=== PATIENT | male | born 1950 | race Caucasian/White ===

== ENCOUNTER → 2016-07-21 | Outpatient (CLI) | payer BC ==
[~2016-07-21] MED LIST: ASPI81TA28 PO; COEN1CAP37 PO; DONE10TA12 PO; HYDR12.56 PO; HYZ/50125 PO; LOSA1TAB PO; LOVA10TA3 PO; LOVA20TA4 PO; LOVA40TA4 PO; MULT-506 PO
[2016-07-21 10:13] LABS: ESTIMATED AVERAGE GLUCOSE 143 mg/dl; HA1C FLAG Normal (Normal)
[2016-07-21 10:19] LABS: BLOOD UREA NITROGEN 16 mg/dl (7-18); CALCIUM 9.5 mg/dl (8.5-10.1); CARBON DIOXIDE 30 mmol/L (21-32); CHLORIDE 103 mmol/L (98-107); CHOLESTEROL 146 mg/dl (0-200); GLUCOSE 126 mg/dl (70-99); POTASSIUM 3.3 mmol/L (3.5-5.1); SODIUM 141 mmol/L (136-145); TRIGLYCERIDES 102 mg/dl (0-150); VERY LOW DENSITY LIPOPROT CALC 20 mg/dl
[2016-07-21 10:29] LABS: CHOLESTEROL/HDL RATIO 3.7; HDL CHOLESTEROL 39 mg/dl; LDL CHOLESTEROL CALCULATED 87 mg/dl
== END | disposition home or self-care (01) ==
LOC: C.LAB1850 07:12
PROVIDERS: ATTEND Internal Medicine
DX: E78.5 Hyperlipidemia, unspecified (principal); I10 Essential (primary) hypertension; Z86.39 Personal history of other endocrine, nutritional and metabolic disease

== ENCOUNTER → 2016-07-26 | Outpatient (CLI) | payer BC ==
--- NOTE | 2016-07-26 10:37 | DIAGNOSTIC IMAGING REPORT ---
RIGHT SHOULDER MIN 2 VIEWS ROUTINE CLINICAL HISTORY: Right shoulder pain. COMPARISON: None FINDINGS: Alignment of the right shoulder is anatomic. There is no acute fracture. There is moderate AC joint arthrosis and mild glenohumeral joint arthrosis. IMPRESSION: 1. No acute fracture. 2. Moderate osteoarthritis of the right acromioclavicular joint and mild arthritis of the glenohumeral joint. Electronically signed by: eDlonte Castro M.D. 07/26/2016 10:36 AM Dictated Date/Time: 07/26/2016 10:35 AM
== END | disposition home or self-care (01) ==
LOC: C.RAD1850 10:14
PROVIDERS: ATTEND Internal Medicine
DX: M25.511 Pain in right shoulder (principal); M19.011 Primary osteoarthritis, right shoulder

== ENCOUNTER → 2016-09-27 | Outpatient (CLI) | payer BC | END | disposition home or self-care (01) | LOC: C.CPL 07:59 | DX: M75.121 Complete rotator cuff tear or rupture of right shoulder, not specified as traumatic (principal) ==

== ENCOUNTER → 2016-10-12 | Outpatient (CLI) | payer BC ==
[~2016-10-12] VITALS: Ht 185.4 cm; Wt 86.1 kg
[2016-10-12 15:03] VITALS: BP 164/84; PULSE 61; Ht 185.4 cm; Wt 86.1 kg
== END | disposition home or self-care (01) ==
LOC: C.NEUR 14:28
PROVIDERS: ATTEND Internal Medicine Pulmonary Disease
DX: R41.3 Other amnesia (principal); R06.83 Snoring

== ENCOUNTER → 2016-12-23 | Outpatient (CLI) | payer BC ==
--- NOTE | 2016-12-23 11:31 | DIAGNOSTIC IMAGING REPORT ---
BRAIN WITHOUT CONTRAST HISTORY: R41.3 Memory changes Neuropsych testing suggest organic causes fob TECHNIQUE: Multiplanar multisequence MRI of the brain was performed without the use of contrast. COMPARISON STUDY: None. FINDINGS: Diffusion-weighted images are considered negative for an acute ischemic event. There are findings of components of the cerebellar as well as cerebral atrophy. Moderate chronic small vessel changes present. There is a small old periventricular infarct on the right and ventricular system is midline. There are mild chronic small vessel changes of the pontine medullary region. IMPRESSION: 1. Age-related atrophy. 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 Chronic small vessel changes throughout both cerebral hemispheres as well as pontine medullary region 3. No acute process. The above report was generated using voice recognition software. It may contain grammatical, syntax or spelling errors. Electronically signed by: Sean Spears M.D. 12/23/2016 11:29 AM Dictated Date/Time: 12/23/2016 11:24 AM
== END | disposition home or self-care (01) ==
LOC: C.MRI 10:29
PROVIDERS: ATTEND Psychiatry & Neurology Neurology
DX: R41.3 Other amnesia (principal)

== ENCOUNTER → 2017-01-24 | Outpatient (CLI) | payer BC ==
--- NOTE | 2017-01-26 12:57 | POLYSOMNOGRAPH REPORT ---
CLINICAL DATA: A 66-year-old male with BMI [address] Card, Dr. Stephens and myself for evaluation of possible sleep apnea. He does have loud snoring and some fatigue along with some memory loss. On the evening of 01/24/2017, a home sleep apnea test was performed using a [employer] type 3 monitor. RECORDING RESULTS: Total recording time was 10 hours. The patient's monitoring time and estimated sleep time was 7.4 hours. RESPIRATORY DATA: Mild sleep apnea was documented. The BOB was 8.8. There were 4 obstructive, 26 mixed, and 8 central apneic episodes. There were 27 hypopneic episodes. The longest respiratory event was 40 seconds. OXIMETRY DATA: Transient hypoxemia was seen. Oxygen aruna was 84%. Mean saturation was 94%. Time below 89% was 2 minutes. HEART RATE DATA: Heart rates ranged from 44-52 beats per minute. SNORING DATA: Snoring was heard intermittently throughout the night. PODIATRY PROFESSOR'S COMMENTS: Some hypopneas and apneas were seen. The thermistor worked sporadically from about snf through the night and the cannula may have not been properly positioned in the patient's nose. IMPRESSION: Mild sleep apnea/hypopnea with mild nocturnal hypoxemia. RECOMMENDATIONS: The patient may benefit from weight loss, use of an oral appliance, or a sleep study with CPAP. Clinical correlation is needed. LAURA
== END | disposition home or self-care (01) ==
LOC: C.NEUR 09:08
PROVIDERS: ATTEND Internal Medicine Pulmonary Disease
DX: R41.3 Other amnesia (principal); R06.83 Snoring

== ENCOUNTER → 2017-03-01 | Outpatient (CLI) | payer BC ==
[~2017-03-01] VITALS: Ht 185.4 cm; Wt 187.4 kg
[2017-03-01 13:46] VITALS: BP 172/85; PULSE 68; Ht 185.4 cm; Wt 187.4 kg
== END | disposition home or self-care (01) ==
LOC: C.NEUR 13:05
PROVIDERS: ATTEND Internal Medicine Pulmonary Disease
DX: G47.33 Obstructive sleep apnea (adult) (pediatric) (principal); G31.84 Mild cognitive impairment of uncertain or unknown etiology; I67.9 Cerebrovascular disease, unspecified

== ENCOUNTER 2017-03-16 08:11 | Observation (INO) | payer BC ==
[2017-03-16] VITALS (7 sets, daily range): BP systolic 128–178; BP diastolic 74–88; PULSE 55–67; TEMP 36.3–37; O2SAT 96–98; Ht 188 cm; Wt 85.1 kg
[~2017-03-16] VITALS: Ht 188 cm; Wt 85.1 kg
--- NOTE | 2017-03-16 09:51 | DIAGNOSTIC IMAGING REPORT ---
CHEST ONE VIEW PORTABLE CLINICAL HISTORY: 66 years-old Male presenting with SYNCOPAL EPISODE X 3 2 DAYS AGO, cold sweats. TECHNIQUE: Portable upright AP view of the chest was obtained. COMPARISON: None. FINDINGS: Atherosclerosis of aortic arch. Cardiac silhouette normal in size. Mild prominence of the left hilum likely vascular. No convincing radiographic evidence of lymphadenopathy. Lungs and pleural spaces clear. Osseous structures normal. Upper abdomen normal. IMPRESSION: 1. No acute cardiopulmonary disease. Electronically signed by: Israel Terrell M.D. 03/16/2017 9:49 AM Dictated Date/Time: 03/16/2017 9:48 AM
--- NOTE | 2017-03-16 10:01 | DIAGNOSTIC IMAGING REPORT ---
HEAD WITHOUT CONTRAST (CT) CLINICAL HISTORY: 66 years-old Male presenting with SYNCOPE X 3 2 DAYS AGO, faintness, cold sweats, collapsed. TECHNIQUE: Multidetector CT imaging of the head was performed without the use of intravenous contrast. IV contrast: None. A dose lowering technique was used consistent with the principles of ALARA (as low as reasonably achievable). COMPARISON: Brain MR from 12/23/2016. CT DOSE (mGy.cm): The estimated cumulative dose is 788.63 mGycm. FINDINGS: Wood Gluer topogram: Unremarkable. Ventricles and sulci normal in size. Periventricular and subcortical white matter hypoattenuation, nonspecific but likely indicative of chronic small vessel ischemic change. Old lacunar infarct noted in the right caudate head. No mass effect or midline shift. No hemorrhage or acute territorial infarct. No extra-axial fluid collection. Paranasal sinuses and mastoid air cells clear. Calvarium intact. IMPRESSION: 1. No acute intracranial abnormality. 2. Chronic small vessel ischemic change and old lacunar infarct in the right caudate head, unchanged. Electronically signed by: Israel Terrell M.D. 03/16/2017 10:00 AM Dictated Date/Time: 03/16/2017 9:56 AM
[2017-03-16 10:02] LABS: BASO % 0.6 %; BASO ABS # 0.04 K/uL (0-0.2); COMPLETE YES; EOS % 0.7 %; HEMATOCRIT 40.8 % (42-52); IG% 0.1 %; LYMPH % 23.6 %; MEAN CELL VOLUME 88.7 fL (80-100); MEAN CORPUSCULAR HEMOGLOBIN 31.1 pg (25-34); MEAN PLATELET VOLUME 10.1 fL (7.4-10.4); MONO % 5.8 %; NEUT % 69.2 %; PLATELET COUNT 219 K/uL (130-400); WHITE BLOOD COUNT 7.21 K/uL (4.8-10.8)
[2017-03-16 10:09] LABS: PROTHROMBIN TIME (PATIENT) 10.9 SECONDS (9.0-12.0)
[2017-03-16 10:24] LABS: ALT/SGPT 30 U/L (12-78); AST/SGOT 24 U/L (15-37); BLOOD UREA NITROGEN 32 mg/dl (7-18); BUN/CREATININE RATIO 26.2 (10-20); CALCIUM 9.4 mg/dl (8.5-10.1); CARBON DIOXIDE 32 mmol/L (21-32); CHLORIDE 102 mmol/L (98-107); CREATININE 1.24 mg/dl (0.60-1.40); GLUCOSE 113 mg/dl (70-99); POTASSIUM 3.2 mmol/L (3.5-5.1); SODIUM 137 mmol/L (136-145)
[2017-03-16] MEDS ORDERED: ASPI81TA28 PO (10:34)
[2017-03-16 10:35] LABS: ALB/GLOB RATIO 1.1 (0.9-2); ALKALINE PHOSPHATASE 88 U/L (45-117); CKMB/CK RATIO 1.5 (0-3.0)
[2017-03-16] MEDS ORDERED: LOVA10TA3 PO (10:35)
[2017-03-16] MEDS ORDERED: DONE10TA12 PO (10:35)
[2017-03-16] MEDS ORDERED: LOSA1TAB PO (10:35)
[2017-03-16] MEDS ORDERED: LOVA20TA4 PO (10:35)
[2017-03-16] MEDS ORDERED: MULT-506 PO (10:35)
[2017-03-16] MEDS ORDERED: SODIUM CHLORIDE 0.9% 1000ML 500 ML IV STA (10:44)
[2017-03-16] MEDS ORDERED: SODIUM CHLORIDE 0.9% 1000ML 1,000 ML IV STA (10:44)
[2017-03-16] MEDS ORDERED: POTASSIUM CHLORIDE 10 MEQ TABCR PO STA (10:44)
[2017-03-16] MEDS ORDERED: HYDR12.56 PO (10:46)
[2017-03-16] MEDS ORDERED: HYZ/50125 PO (10:46)
[2017-03-16] MEDS ORDERED: COEN1CAP37 PO (10:46)
[2017-03-16] MEDS ORDERED: LOVA40TA4 PO (10:46)
--- NOTE | 2017-03-16 10:47 | EMERGENCY ROOM VISIT NOTE ---
History First contact with patient: 08:43 Chief Complaint: SYNCOPE (NEAR SYNCOPE) Stated Complaint: FAINTNESS, COLD SWEATS, COLLAPSED Nursing Triage Summary: pt reports he has been having syncopal episodes last one tuesday at 0900 . had appt with pcp on tuesday told to come to ed for testing on tuesday History of Present Illness Patient is a 66-year-old white female with past medical history significant for hypertension, dyslipidemia, sleep apnea and recently diagnosed with mild dementia, who presents to the emergency department, by his for evaluation of syncope 3 that occurred 2 days ago. The largely provides the history, supplemented by the patient. First syncopal episode occurred around 4:00 on Tuesday morning. The patient woke up to go to the bathroom which is normal for him. He had voided, then apparently passed out in the bathroom. He believes that he may have felt like he was going to pass out, because he was able to get himself to the ground. He did not injure himself in the fall. His heard a popping in the bathroom, and went in and found him in a seated position wedged between the toilet and the tub. She states she was able to help, maneuver to a more comfortable position, then it was about 15 or 20 minutes until he was able to crawl and get himself back to bed. He may have fallen asleep for a short period of time, later did get up to go to the bathroom to have a bowel movement and had no problems with this. He got up later was going about his morning. Between 8:30 or 9:00 he was upstairs in the shower, when he reportedly passed out again. heard him fall, and found him outside of the shower, with his towel in a seated position. He does report that he was out of the shower and was getting dried off when he passed out again. At that time he did hit his elbow and had a small red danny on his right religious. It was again another 10 or 15 minutes until he was able to get up and get dressed. She does note that he had broken out in a cold sweat at that time. She did check his temperature and he did not have a fever. She had an go lay down in the living room. Shortly thereafter, patient reported that he was hungry, he got up and was seated at the table eating when he began to feel lightheaded. His said was standing next to him in the chair, when his head slumped over to the table. She states that he was out for a few minutes before he came to, at which point she had an go lay down on the couch for the remainder of the day. He did increase his fluid intake throughout the remainder of the day. He felt fine that afternoon, felt well enough to take a walk, and go to a meeting. At no point there was no tremulousness or seizure-like activity, tongue biting or incontinence. Yesterday he felt completely fine, he was out raking and doing yard work, and went for a long walk. He had no symptoms with exertion. They did call his primary care provider yesterday, and at the end of the business day were contacted by nursing staff who recommended that he come to the emergency department for evaluation. The were in the middle of dinner at that time. Patient reports no symptoms at this time. There have been no medication changes recently. He did have an evaluation by neurology over the last 6 months , for sleep and memory issues. He had a negative brain MRI and sleep studies that were notable for a mild sleep apnea for which he did not want any intervention. Review of Systems Review of systems as per HPI. All other systems reviewed were negative. 10 systems reviewed. Past Medical/Surgical History Medical Problems: (1) Hyperlipidemia, Unspecified (2) Hypertension Nos (3) Mild dementia (4) Obstructive Sleep Apnea (Adult) (Pediatric) Surgical Problems: (1) H/O repair of rotator cuff (2) Rupture of quadriceps tendon Electronic medical records are reviewed and summarized as above/below. See Problem List. Social History Smoking Status: Never Smoker Marital Status: Housing Status: lives with significant other Occupation Status: retired Current/Historical Medications Scheduled Aspirin (Aspirin Ec), 81 MG PO DAILY Coenzyme Q10 (Ubidecarenone) (Co Q-10), 1 CAP PO DAILY Donepezil Hydrochloride (Aricept), 1 TAB PO HS Hctz/Losartan (Hyzaar 12.5MG/50MG), 1 TAB PO DAILY Lovastatin (Mevacor), 20 MG PO DAILY Lovastatin (Mevacor), 40 MG PO DAILY Multivitamin (Multivitamin), 1 TAB PO DAILY Scheduled PRN Hydrochlorothiazide (Hctz), 12.5 MG PO for EDEMA Physical Exam Vital Signs Date Time Temp Pulse Resp B/P (MAP) Pulse Ox O2 Delivery O2 Flow Rate FiO2 03/16/17 11:20 36.3 60 18 128/74 Room Air 03/16/17 11:02 60 18 128/74 98 Room Air 03/16/17 10:25 61 03/16/17 10:07 54 151/81 61 144/78 69 128/74 03/16/17 08:21 36.3 63 18 137/87 98 Room Air Physical Exam CONSTITUTIONAL: Patient is a well-appearing 66-year-old white male who is awake and alert and in no acute distress. EYES: Pupils equal, round, reactive to light and accommodation. EOMs intact without nystagmus. Sclera are anicteric. ENT: Tympanic membranes intact, with normal landmarks. External canals are clear. Oral and nasopharynx are clear. Mucous membranes are moist, no lesions , tongue and gums appear normal. NECK: No bruits auscultated. Supple without lymphadenopathy. No thyromegaly. No meningeal signs. Full active range of motion without discomfort. CARDIOVASCULAR: Regular rate and rhythm, with normal S1 and S2, no murmur or gallop or rub is heard. No carotid bruits auscultated. No JVD. Peripheral pulses easy to palpable. RESPIRATORY: Breath sounds equal and clear to auscultation without wheezes, rales, or rhonchi heard. Full and equal chest expansion without accessory muscle use or retractions. GI: Bowel sounds are present. Abdomen is soft, nontender, nondistended. No organomegaly. No pulsatile masses. No guarding or rebound. MUSCULOSKELETAL: Full range of motion of extremities x 4 with good strength. No cyanosis, edema, joint tenderness or swelling. No deformity. INTEGUMENTARY: No lesions or rash, normal skin turgor. NEUROLOGICAL: Slight resting tremor is noted. Alert, oriented, and cooperative. Cranial nerves, sensation and strength grossly intact. Upper and lower extremity DTRs are equal and symmetrical bilaterally. Negative Romberg and pronator drift. Finger to nose and finger to finger testing is within normal limits. Mini-Mental status exam is unremarkable. LYMPH: No lymphadenopathy. Medical Decision & Procedures ER Provider Diagnostic Interpretation: CHEST ONE VIEW PORTABLE CLINICAL HISTORY: 66 years-old Male presenting with SYNCOPAL EPISODE X 3 2 DAYS AGO, cold sweats. TECHNIQUE: Portable upright AP view of the chest was obtained. COMPARISON: None. FINDINGS: Atherosclerosis of aortic arch. Cardiac silhouette normal in size. Mild prominence of the left hilum likely vascular. No convincing radiographic evidence of lymphadenopathy. Lungs and pleural spaces clear. Osseous structures normal. Upper abdomen normal. IMPRESSION: 1. No acute cardiopulmonary disease. HEAD WITHOUT CONTRAST (CT) CLINICAL HISTORY: 66 years-old Male presenting with SYNCOPE X 3 2 DAYS AGO, faintness, cold sweats, collapsed. TECHNIQUE: Multidetector CT imaging of the head was performed without the use of intravenous contrast. IV contrast: None. A dose lowering technique was used consistent with the principles of ALARA (as low as reasonably achievable). COMPARISON: Brain MR from 12/23/2016. CT DOSE (mGy.cm): The estimated cumulative dose is 788.63 mGycm. FINDINGS: Patrol Judge topogram: Unremarkable. Ventricles and sulci normal in size. Periventricular and subcortical white matter hypoattenuation, nonspecific but likely indicative of chronic small vessel ischemic change. Old lacunar infarct noted in the right caudate head. No mass effect or midline shift. No hemorrhage or acute territorial infarct. No extra-axial fluid collection. Paranasal sinuses and mastoid air cells clear. Calvarium intact. IMPRESSION: 1. No acute intracranial abnormality. 2. Chronic small vessel ischemic change and old lacunar infarct in the right caudate head, unchanged. Laboratory Results 03/16/17 09:45 Red Blood Count 4.60, Mean Corpuscular Volume 88.7, Mean Corpuscular Hemoglobin 31.1, Mean Corpuscular Hemoglobin Concent 35.0, Mean Platelet Volume 10.1, Neutrophils (%) (Auto) 69.2, Lymphocytes (%) (Auto) 23.6, Monocytes (%) (Auto) 5.8, Eosinophils (%) (Auto) 0.7, Basophils (%) (Auto) 0.6, Neutrophils # (Auto) 4.99, Lymphocytes # (Auto) 1.70, Monocytes # (Auto) 0.42, Eosinophils # (Auto) 0.05, Basophils # (Auto) 0.04 03/16/17 09:45 Test 03/16/17 09:45 White Blood Count 7.21 K/uL (4.8-10.8) Red Blood Count 4.60 M/uL (4.7-6.1) Hemoglobin 14.3 g/dL (14.0-18.0) Hematocrit 40.8 % (42-52) Mean Corpuscular Volume 88.7 fL (80-100) Mean Corpuscular Hemoglobin 31.1 pg (25-34) Mean Corpuscular Hemoglobin Concent 35.0 g/dl (32-36) Platelet Count 219 K/uL (130-400) Mean Platelet Volume 10.1 fL (7.4-10.4) Neutrophils (%) (Auto) 69.2 % Lymphocytes (%) (Auto) 23.6 % Monocytes (%) (Auto) 5.8 % Eosinophils (%) (Auto) 0.7 % Basophils (%) (Auto) 0.6 % Neutrophils # (Auto) 4.99 K/uL (1.4-6.5) Lymphocytes # (Auto) 1.70 K/uL (1.2-3.4) Monocytes # (Auto) 0.42 K/uL (0.11-0.59) Eosinophils # (Auto) 0.05 K/uL (0-0.5) Basophils # (Auto) 0.04 K/uL (0-0.2) RDW Standard Deviation 38.8 fL (36.4-46.3) RDW Coefficient of Variation 12.0 % (11.5-14.5) Immature Granulocyte % (Auto) 0.1 % Immature Granulocyte # (Auto) 0.01 K/uL (0.00-0.02) Prothrombin Time 10.9 SECONDS (9.0-12.0) Prothromb Time International Ratio 1.0 (0.9-1.1) Activated Partial Thromboplast Time 25.4 SECONDS (21.0-31.0) Partial Thromboplastin Ratio 1.0 Anion Gap 3.0 mmol/L (3-11) Est Creatinine Clear Calc Drug Dose 67.2 ml/min Estimated GFR () 69.3 Estimated GFR (Non- 59.8 BUN/Creatinine Ratio 26.2 (10-20) Calcium Level 9.4 mg/dl (8.5-10.1) Magnesium Level 2.0 mg/dl (1.8-2.4) Total Bilirubin 0.8 mg/dl (0.2-1) Aspartate Amino Transf (AST/SGOT) 24 U/L (15-37) Alanine Aminotransferase (ALT/SGPT) 30 U/L (12-78) Alkaline Phosphatase 88 U/L (45-117) Total Creatine Kinase 204 U/L (39-308) Creatine Kinase MB 3.0 ng/ml (0.5-3.6) Creatine Kinase MB Ratio 1.5 (0-3.0) Troponin I < 0.015 ng/ml (0-0.045) Total Protein 7.1 gm/dl (6.4-8.2) Albumin 3.7 gm/dl (3.4-5.0) Globulin 3.4 gm/dl (2.5-4.0) Albumin/Globulin Ratio 1.1 (0.9-2) Thyroid Stimulating Hormone (TSH) 1.380 uIu/ml (0.300-4.500) Medications Administered Medications (Trade) Dose Ordered Sig/Ryder Route Start Time Stop Time Status Last Admin Dose Admin Sodium Chloride 500 ml @ 999 mls/hr Q31M STAT IV 03/16/17 10:44 03/16/17 11:14 DC 03/16/17 10:44 999 MLS/HR Potassium Chloride (Klor-Con M10) 40 meq NOW STAT PO 03/16/17 10:44 03/16/17 10:45 DC 03/16/17 11:18 40 MEQ ECG Indication: syncope Rate (beats per minute): 54 Rhythm: sinus bradycardia Findings: no acute ischemic change, no ectopy Change: no significant change ED Course The patient was seen and evaluated as above. His old records were reviewed. History and presentation were reviewed with attending physician, and EKG workup was agreed upon. IV lock was initiated and laboratory studies were collected. EKG was performed and was as noted above. He was seen with differential, coags , cardiac enzymes, CMP and TSH were drawn. He was mildly orthostatic with vital , and did receive a 500 mL bolus of normal saline solution, then 250 per hour. Chest x-ray was obtained and was unremarkable. Head CT was performed and noted chronic small vessel changes, and an old infarct in the right caudate head, no acute intracranial abnormality was noted. Patient's laboratory studies were largely unremarkable. White count is normal. H&H 14 and 40. Coags and platelets are within normal limits. Potassium slightly low at 3.2, this was repleted with 40 mEq of potassium chloride orally. BUN and creatinine 32 and 1.24. Liver functions are not elevated. Cardiac markers are negative 1. TSH is indicative of a euthyroid state. All laboratory and diagnostic imaging studies were reviewed with attending physician who also independently evaluated the patient. Given his multiple syncopal episodes, in addition to his other comorbidities, admission/ observation in the hospital was discussed and the patient and his were in agreement. Patient was reviewed with the wound and the hospitalist service for further care and management. Differential includes acute coronary syndrome, arrhythmia, seizure, orthostasis , dehydration, electrolyte abnormalities, anemia, hypoglycemia, medication side effect, among others. Medical Decision See ED Course. Medication Reconcilliation Current Medication List: was personally reviewed by me Blood Pressure Screening Patient's blood pressure: Elevated blood pressure Blood pressure disposition: Referred to PCP Impression Primary Impression: Syncopal episodes Departure Information Referrals Pro,Bandar oBggs M.D. (PCP) Patient Instructions My [facility]
[2017-03-16] MEDS ORDERED: MAGNESIUM HYDROXIDE SUSP 30 ML UDC PO PRN (12:00)
[2017-03-16] MEDS ORDERED: ACETAMINOPHEN 325 MG TAB PO PRN (12:00)
[2017-03-16] MEDS ORDERED: HYDROCHLOROTHIAZIDE 25 MG TAB PO PRN (12:00)
[2017-03-16] MEDS ORDERED: ONDANSETRON INJ 2 MG/ML 2 ML VIAL IV PRN (12:00)
[2017-03-16] MEDS ORDERED: IV FLUIDS COMPLETED PRN (12:30)
--- NOTE | 2017-03-16 12:37 | History and Physical ---
History & Physical Date & Time of Service: Mar 16, 2017 at 12:18 Chief Complaint: Faintness, Cold Sweats, Collapsed Primary Care Physician: Bandar Card M.D. History of Present Illness Source: patient, spouse, clinic records 66 y/o M who was instructed by his PCP office to come to the ED last night after calling in yesterday for concerns of syncope x3 on Tuesday. Pt states he passed out once while getting ready to go to the bathroom Tuesday AM, around lunch while eating, and a third time later in the day while getting out of the shower. It is unclear if he is fully passing out as he has some short term memory issues, but at minimum he is weak and falling to the floor. He does believe he is passing out. is present now, but states she has not been present when these episodes happened. Pt states he had a possible similar episode about 1.5 years ago while he was standing at the refrigerator, but is also not sure if he fully lost consciousness with that episode either. He did not have any of these episodes yesterday or today. He states that Tuesday and Tuesday were usual days for him, although his notes that he did not sleep well either night and was quite tired during those days. states that after these episodes, pt is somewhat weak, but no concerns for seizure like activity. Pt feels his usual at present. Pt denies fever, SOB, chest pain, abd pain, n/v/ c/d, LE pain or swelling. He has been eating well and without issue. Pt had a recent neuro work-up with Dr. Rosales regarding memory loss. Carotid US and ECHO done at [facility] offices are reported as neg. He had a sleep study in January that they were told was mild ANNA MARIE and "not worth the trouble" of a CPAP. He was dx with early dementia and started on aricept on 12/31/16, 5mg. They were told to increase to 10mg which they did at some point in January. states she has not noted any improvement in his short term memory. Pt notes he feels no different. Past Medical/Surgical History Medical Problems: (1) Hyperlipidemia, Unspecified Status: Chronic (2) Hypertension Nos Status: Chronic (3) Mild dementia Status: Chronic (4) Obstructive Sleep Apnea (Adult) (Pediatric) Status: Chronic Surgical Problems: (1) H/O repair of rotator cuff Status: Resolved (2) Rupture of quadriceps tendon Status: Resolved Family History Father with hx of epilepsy Brother with hx of [place] Social History Smoking Status: Never Smoker Alcohol Use: 1 beer per week Drug Use: none Marital Status: Immunizations History of Tetanus Vaccine?: Unknown History of Pneumococcal: Unknown History of Hepatitis B Vaccine: Unknown Multi-Drug Resistant Organisms History of MDRO: No Allergies Coded Allergies: No Known Allergies (Verified , 03/16/17) Home Medications Scheduled Aspirin (Aspirin Ec), 81 MG PO DAILY Coenzyme Q10 (Ubidecarenone) (Co Q-10), 1 CAP PO DAILY Donepezil Hydrochloride (Aricept), 1 TAB PO HS Hctz/Losartan (Hyzaar 12.5MG/50MG), 1 TAB PO DAILY Lovastatin (Mevacor), 20 MG PO DAILY Lovastatin (Mevacor), 40 MG PO DAILY Multivitamin (Multivitamin), 1 TAB PO DAILY Scheduled PRN Hydrochlorothiazide (Hctz), 12.5 MG PO for EDEMA Review of Systems Pertinent positives and negatives reviewed in HPI--all others negative Physical Exam Vital Signs Date Time Temp Pulse Resp B/P (MAP) Pulse Ox O2 Delivery O2 Flow Rate FiO2 03/16/17 11:20 36.3 60 18 128/74 Room Air 03/16/17 11:02 60 18 128/74 98 Room Air 03/16/17 10:25 61 03/16/17 10:07 54 151/81 61 144/78 69 128/74 03/16/17 08:21 36.3 63 18 137/87 98 Room Air General Appearance: WD/WN, no apparent distress Head: normocephalic, atraumatic Eyes: normal inspection, EOMI ENT: hearing grossly normal Neck: supple, + pertinent finding (Well circumscribed mass that is freely movable on the posteral L c-spine, roughly golf ball sized, nonTTP) Respiratory/Chest: normal breath sounds, no respiratory distress Cardiovascular: no edema, normal peripheral pulses, + bradycardia Abdomen/GI: non tender, soft Extremities/Musculoskelatal: no calf tenderness, no pedal edema Neurologic/Psych: alert, normal mood/affect, oriented x 3 Skin: normal color, warm/dry Diagnostics Laboratory Results Results Past 24 Hours Test 03/16/17 09:16 03/16/17 09:45 Range/Units Creatine Kinase MB Ratio 1.5 0-3.0 White Blood Count 7.21 4.8-10.8 K/uL Red Blood Count 4.60 4.7-6.1 M/uL Hemoglobin 14.3 14.0-18.0 g/dL Hematocrit 40.8 42-52 % Mean Corpuscular Volume 88.7 80-100 fL Mean Corpuscular Hemoglobin 31.1 25-34 pg Mean Corpuscular Hemoglobin Concent 35.0 32-36 g/dl Platelet Count 219 130-400 K/uL Mean Platelet Volume 10.1 7.4-10.4 fL Neutrophils (%) (Auto) 69.2 % Lymphocytes (%) (Auto) 23.6 % Monocytes (%) (Auto) 5.8 % Eosinophils (%) (Auto) 0.7 % Basophils (%) (Auto) 0.6 % Neutrophils # (Auto) 4.99 1.4-6.5 K/uL Lymphocytes # (Auto) 1.70 1.2-3.4 K/uL Monocytes # (Auto) 0.42 0.11-0.59 K/uL Eosinophils # (Auto) 0.05 0-0.5 K/uL Basophils # (Auto) 0.04 0-0.2 K/uL RDW Standard Deviation 38.8 36.4-46.3 fL RDW Coefficient of Variation 12.0 11.5-14.5 % Immature Granulocyte % (Auto) 0.1 % Immature Granulocyte # (Auto) 0.01 0.00-0.02 K/uL Prothrombin Time 10.9 9.0-12.0 SECONDS Prothromb Time International Ratio 1.0 0.9-1.1 Activated Partial Thromboplast Time 25.4 21.0-31.0 SECONDS Partial Thromboplastin Ratio 1.0 Sodium Level 137 136-145 mmol/L Potassium Level 3.2 3.5-5.1 mmol/L Chloride Level 102 98-107 mmol/L Carbon Dioxide Level 32 21-32 mmol/L Anion Gap 3.0 3-11 mmol/L Blood Urea Nitrogen 32 7-18 mg/dl Creatinine 1.24 0.60-1.40 mg/dl Est Creatinine Clear Calc Drug Dose 67.2 ml/min Estimated GFR () 69.3 Estimated GFR (Non- 59.8 BUN/Creatinine Ratio 26.2 10-20 Random Glucose 113 70-99 mg/dl Calcium Level 9.4 8.5-10.1 mg/dl Magnesium Level 2.0 1.8-2.4 mg/dl Total Bilirubin 0.8 0.2-1 mg/dl Aspartate Amino Transf (AST/SGOT) 24 15-37 U/L Alanine Aminotransferase (ALT/SGPT) 30 12-78 U/L Alkaline Phosphatase 88 45-117 U/L Total Creatine Kinase 204 39-308 U/L Creatine Kinase MB 3.0 0.5-3.6 ng/ml Troponin I < 0.015 0-0.045 ng/ml Total Protein 7.1 6.4-8.2 gm/dl Albumin 3.7 3.4-5.0 gm/dl Globulin 3.4 2.5-4.0 gm/dl Albumin/Globulin Ratio 1.1 0.9-2 Thyroid Stimulating Hormone (TSH) 1.380 0.300-4.500 uIu/ml Diagnostic Radiology 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 Carotid US 01/14/17: neg for significant stenosis MRI 01/02/17: old stroke ECHO: 01/05/17: EF 55-60% with mild LVH CXR normal EKG Sinus andrey Impression Assessment and Plan 66 y/o M who was admitted for observation on 03/16 after multiple syncopal episodes Syncope: uncertain etiology, bradycardia/dysrhythmia vs aricept side effect vs untx ANNA MARIE seem most likely causes EKG noted as andrey without block, will monitor on tele CXR neg for acute 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 Carotid US 01/14/17: neg for significant stenosis MRI 01/02/17: old stroke ECHO: 01/05/17: EF 55-60% with mild LVH Will not repeat carotid US or ECHO at this time Aricept was started 12/31/16 and dose increased mid-January--side effects include bradycardia, syncope, insomnia, AV block + orthostatics in the ED Sleep study 02/01 with mild ANNA MARIE and hypoxia on home sleep study, however CPAP was not recommended at that time--overnight pulse ox pending Trop neg, TSH/CBC WNL, PRP with mild hypoK that seem unlikely to be causing sx Will hold aricept tonight HypoK: replace and monitor HTN: monitor on home meds BP is stable, not on a beta carrillo HLD: continue home meds Dementia: notes no improvement on aricept x2 months If this is thought to be causing sx, should likely be d/c'd and f/u with Dr. Rosales in the office B12 07/2016 was WNL, will not repeat c-spine lipoma: present for years, states possibly a bit larger in the last year Not in an area that should likely cause vascular impingement, but noted Other: Full code Ambulation for DVT proph given likely short duration of admission Reg diet Level of Care Telemetry Advanced Directives Existing Living Will: Yes Existing Power of Washer And Crusher Tender: No Resuscitation Status FULL RESUSCITATION VTE Prophylaxis VTE Risk Assessment Done? Y/N: Yes Risk Level: Low
[2017-03-16] MEDS: POTASSIUM CHLR 10 MEQ / WTR 10 MEQ in PREMIXED WATER 100 ML IV SCH ×4 (15:32→20:13)
[2017-03-16] MEDS ORDERED: NURSING VERBAL MED ORDER ONE (20:30)
[2017-03-16] MEDS ORDERED: LOSARTAN/HCTZ 50-12.5 EA TAB PO SCH (21:00)
[2017-03-16] MEDS ORDERED: MULTIVITAMIN TAB PO SCH (21:00)
[2017-03-16] MEDS ORDERED: ASPIRIN 81 MG ECTAB PO SCH (21:00)
[2017-03-16] MEDS ORDERED: LOVASTATIN 20 MG TAB PO SCH (21:00)
[2017-03-16] MEDS ORDERED: LOVASTATIN 20 MG TAB PO ONE (21:15)
[2017-03-17 04:06] VITALS: BP 148/81; PULSE 59; TEMP 36.5; O2SAT 94
[2017-03-17 05:19] VITALS: PULSE 60; O2SAT 95
[2017-03-17 06:23] LABS: BUN/CREATININE RATIO 21.7 (10-20); CALCIUM 9.2 mg/dl (8.5-10.1); CREATININE 1.2 mg/dl (0.60-1.40); POTASSIUM 3.6 mmol/L (3.5-5.1)
[2017-03-17 07:47] VITALS: BP 163/84; PULSE 64; TEMP 36.9; O2SAT 97
--- NOTE | 2017-03-17 08:44 | Hospitalist Progress Note ---
Hospitalist Progress Note Date of Service Mar 17, 2017. Objective Vital Signs Date Time Temp Pulse Resp B/P (MAP) Pulse Ox O2 Delivery O2 Flow Rate FiO2 03/17/17 07:47 36.9 64 18 163/84 (110) 97 Room Air 03/17/17 05:19 60 21 95 Room Air 03/17/17 04:06 36.5 59 18 148/81 (103) 94 Room Air 03/17/17 04:00 Room Air 03/16/17 23:59 Room Air 03/16/17 23:18 36.5 58 20 157/79 (105) 96 Room Air 03/16/17 22:43 160/80 (106) 03/16/17 20:00 Room Air 03/16/17 19:50 37.0 55 18 178/88 (118) 96 Room Air 03/16/17 16:00 96 Room Air 03/16/17 15:46 36.9 67 18 145/79 (101) 96 Room Air 03/16/17 14:15 36.6 67 16 164/81 (108) 98 Room Air 03/16/17 12:42 60 18 157/85 98 Room Air 03/16/17 12:22 59 03/16/17 11:20 36.3 60 18 128/74 Room Air 03/16/17 11:02 60 18 128/74 98 Room Air 03/16/17 10:25 61 03/16/17 10:07 54 151/81 61 144/78 69 128/74 Laboratory Results Last 24 Hours Test 03/16/17 09:16 03/16/17 09:45 03/17/17 05:40 Creatine Kinase MB Ratio 1.5 White Blood Count 7.21 K/uL Red Blood Count 4.60 M/uL Hemoglobin 14.3 g/dL Hematocrit 40.8 % Mean Corpuscular Volume 88.7 fL Mean Corpuscular Hemoglobin 31.1 pg Mean Corpuscular Hemoglobin Concent 35.0 g/dl Platelet Count 219 K/uL Mean Platelet Volume 10.1 fL Neutrophils (%) (Auto) 69.2 % Lymphocytes (%) (Auto) 23.6 % Monocytes (%) (Auto) 5.8 % Eosinophils (%) (Auto) 0.7 % Basophils (%) (Auto) 0.6 % Neutrophils # (Auto) 4.99 K/uL Lymphocytes # (Auto) 1.70 K/uL Monocytes # (Auto) 0.42 K/uL Eosinophils # (Auto) 0.05 K/uL Basophils # (Auto) 0.04 K/uL RDW Standard Deviation 38.8 fL RDW Coefficient of Variation 12.0 % Immature Granulocyte % (Auto) 0.1 % Immature Granulocyte # (Auto) 0.01 K/uL Prothrombin Time 10.9 SECONDS Prothromb Time International Ratio 1.0 Activated Partial Thromboplast Time 25.4 SECONDS Partial Thromboplastin Ratio 1.0 Sodium Level 137 mmol/L 137 mmol/L Potassium Level 3.2 mmol/L 3.6 mmol/L Chloride Level 102 mmol/L 104 mmol/L Carbon Dioxide Level 32 mmol/L 31 mmol/L Anion Gap 3.0 mmol/L 2.0 mmol/L Blood Urea Nitrogen 32 mg/dl 26 mg/dl Creatinine 1.24 mg/dl 1.20 mg/dl Est Creatinine Clear Calc Drug Dose 67.2 ml/min 69.5 ml/min Estimated GFR () 69.3 72.1 Estimated GFR (Non- 59.8 62.2 BUN/Creatinine Ratio 26.2 21.7 Random Glucose 113 mg/dl 113 mg/dl Calcium Level 9.4 mg/dl 9.2 mg/dl Magnesium Level 2.0 mg/dl Total Bilirubin 0.8 mg/dl Aspartate Amino Transf (AST/SGOT) 24 U/L Alanine Aminotransferase (ALT/SGPT) 30 U/L Alkaline Phosphatase 88 U/L Total Creatine Kinase 204 U/L Creatine Kinase MB 3.0 ng/ml Troponin I < 0.015 ng/ml Total Protein 7.1 gm/dl Albumin 3.7 gm/dl Globulin 3.4 gm/dl Albumin/Globulin Ratio 1.1 Thyroid Stimulating Hormone (TSH) 1.380 uIu/ml Assessment and Plan 66 y/o M who was admitted for observation on 03/16 after multiple syncopal episodes Syncope: uncertain etiology, bradycardia/dysrhythmia vs aricept side effect - EKG noted as andrey without block, will monitor on tele - CXR neg for acute - 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 - Carotid US 01/14/17: neg for significant stenosis - MRI 01/02/17: old stroke - ECHO: 01/05/17: EF 55-60% with mild LVH Will not repeat carotid US or ECHO at this time - Aricept was started 12/31/16 and dose increased mid-January--side effects include bradycardia, syncope, insomnia, AV block - Held on 03/16 overnight - + orthostatics in the ED - ANNA MARIE seem unlikely as Overnight pulse ox was completed and passed - would not require O2 overnight Hypokalemia - Resolved: monitor prp HTN: monitor on home meds - Hyzaar 50-12.5 Q HS, pt is not on a beta carrillo HLD - continue lovastatin 60 mg QHS Dementia: - notes no improvement on aricept x2 months - If this is thought to be causing sx, should likely be d/c'd and f/u with Dr. Rosales in the office - B12 07/2016 was WNL, will not repeat C-spine lipoma: - present for years, states possibly a bit larger in the last year - Not in an area that should likely cause vascular impingement, but noted DVT ppx: ambulation CODE STATUS: Full code Disposition: From home, lives with
[2017-03-17] MEDS ORDERED: LOSARTAN/HCTZ 50-12.5 EA TAB PO SCH (09:00)
[2017-03-17] MEDS ORDERED: NON-FORMULARY MEDICATION (Coenzyme Q10 (Ubidecarenone) (Co Q-10) 1 CAP) PO SCH (09:00)
[2017-03-17] MEDS ORDERED: LOVASTATIN 20 MG TAB PO SCH ×2 (09:00→21:00)
[2017-03-17] MEDS ORDERED: ASPIRIN 81 MG ECTAB PO SCH (09:00)
[2017-03-17] MEDS ORDERED: LOVASTATIN 40 MG PO SCH (09:00)
[2017-03-17] MEDS ORDERED: MULTIVITAMIN TAB PO SCH (09:00)
[2017-03-17 09:26] VITALS: BP 158/85
--- NOTE | 2017-03-17 10:33 | Discharge Instructions ---
Discharge Instructions Date of Service Mar 17, 2017. Admission Reason for Admission: Syncopal Episodes Discharge Discharge Diagnosis / Problem: Recurrent syncopal episodes Discharge Goals Goal(s): Improve function, Diagnostic testing (30 day event recorder) Activity Recommendations Activity Limitations: resume your previous activity Lifting Limitations: none Exercise/Sports Limitations: as tolerated May Resume Sexual Activity: when tolerated Shower/Bathe: no limitations Driving or Machine Use: no driving until 30 day event recorder completed and cleared by Dr. Card . Instructions / Follow-Up Instructions / Follow-Up Medications: - ARICEPT: stop this medication as it can cause syncope, bradycardia Syncope: no obvious cause at this time, most likely explanation is adverse effect from Aricept which we will stop no sinus pauses or AV block on monitor while admitted, you were sinus rhythm in 60-80's you had echocardiogram as outpatient that ruled out valvular pathology you had a carotid US that ruled out significant stenosis MRI brain was already done as outpatient please follow up closely with Dr. Card tomorrow and then Dr. Rosales in the next few weeks since we are stopping Aricept For now, you should not drive until we have completed 30 day event recorder and you will need to be cleared by Dr. Card. FOLLOW UP - Dr. Card tomorrow - Dr. Rosales in next few weeks, my nurse navigator will work on getting you the appointment and contact you Current Hospital Diet Patient's current hospital diet: Regular Diet Discharge Diet Recommended Diet: Regular Diet Pending Studies Studies pending at discharge: no Medical Emergencies . Who to Call and When: Medical Emergencies: If at any time you feel your situation is an emergency, please call 911 immediately. . Non-Emergent Contact Non-Emergency issues call your: Primary Care Provider Call Non-Emergent contact if: you have any medication questions . . "Provider Documentation" section prepared by [place]. . VTE Core Measure Inpt VTE Proph given/why not?: SCD's [place] Drug Monitoring Program Search Results: no issues identified
--- NOTE | 2017-03-17 10:44 | Discharge Summary ---
Discharge Summary Date of Service Mar 17, 2017. Discharge Summary Admission Date: Mar 16, 2017 at 12:04 Discharge Date: Mar 17, 2017 Discharge Disposition: Home Principal Diagnosis: Recurrent Syncopal episode Problems/Secondary Diagnoses: (1) Hyperlipidemia, Unspecified Status: Chronic (2) Hypertension Nos Status: Chronic (3) Mild dementia Status: Chronic (4) Obstructive Sleep Apnea (Adult) (Pediatric) Status: Chronic Immunizations: History of Tetanus Vaccine?: Unknown History of Pneumococcal: Unknown History of Hepatitis B Vaccine: Unknown Procedures: HEAD WITHOUT CONTRAST (CT) 03/16 IMPRESSION: 1. No acute intracranial abnormality. 2. Chronic small vessel ischemic change and old lacunar infarct in the right caudate head, unchanged. CHEST ONE VIEW PORTABLE 03/16 IMPRESSION: 1. No acute cardiopulmonary disease. Consultations: None Medication Reconciliation Continued Medications: Aspirin (Aspirin Ec) 81 Mg Tab 81 MG PO DAILY Coenzyme Q10 (Ubidecarenone) (Co Q-10) 200 Mg Cap 1 CAP PO DAILY Hctz/Losartan (Hyzaar 12.5MG/50MG) Tab 1 TAB PO DAILY, TAB Hydrochlorothiazide (Hctz) 12.5 Mg Cap 12.5 MG PO PRN for EDEMA, TAB Lovastatin (Mevacor) 20 Mg Tab 20 MG PO DAILY, TAB Lovastatin (Mevacor) 40 Mg Tab 40 MG PO DAILY, TAB Multivitamin (Multivitamin) Tab 1 TAB PO DAILY, TAB Discontinued Medications: Donepezil Hydrochloride (Aricept) 10 Mg Tab 1 TAB PO HS, TAB Discharge Exam The patient was seen and examined this morning. Pt reports doing well, he has no acute complaints. He slept ok overnight but is not interested in staying again if not necessary. Pt had no events on tele overnight. His is present at bedside. She notes that the patient has an apt with Dr. Card tomorrow and would like to make that appointment. ROS: Pt denies any episodes of lightheadedness, dizziness, chest pain, palpitation, flutter, abd pain, n/v/d/c, last BM was this morning, denies weakness or lightheadedness. No episodes of dizziness, walking without difficulty or ambulation assistance. All other ROS reviewed and negative. Physical Exam: General Appearance: WD/WN, no apparent distress, + thin Eyes: PERRL, EOMI ENT: hearing grossly normal, pharynx normal Neck: supple, no JVD Respiratory/Chest: lungs clear, normal breath sounds, no respiratory distress, no accessory muscle use Cardiovascular: regular rate, rhythm, no murmur, normal peripheral pulses Abdomen / GI: normal bowel sounds, non tender, soft Extremities: no calf tenderness, no pedal edema Neurologic/Psychiatric: alert, normal mood/affect, oriented x 3, + pertinent finding (occasionally repeats himself) Skin: normal color, warm/dry Hospital Course History of Present Illness Source: patient, spouse, clinic records 66 y/o M who was instructed by his PCP office to come to the ED last night after calling in yesterday for concerns of syncope x3 on Tuesday. Pt states he passed out once while getting ready to go to the bathroom Tuesday AM, around lunch while eating, and a third time later in the day while getting out of the shower. It is unclear if he is fully passing out as he has some short term memory issues, but at minimum he is weak and falling to the floor. He does believe he is passing out. is present now, but states she has not been present when these episodes happened. Pt states he had a possible similar episode about 1.5 years ago while he was standing at the refrigerator, but is also not sure if he fully lost consciousness with that episode either. He did not have any of these episodes yesterday or today. He states that Tuesday and Tuesday were usual days for him, although his notes that he did not sleep well either night and was quite tired during those days. states that after these episodes, pt is somewhat weak, but no concerns for seizure like activity. Pt feels his usual at present. Pt denies fever, SOB, chest pain, abd pain, n/v/ c/d, LE pain or swelling. He has been eating well and without issue. Pt had a recent neuro work-up with Dr. Rosales regarding memory loss. Carotid US and ECHO done at [facility] group offices are reported as neg. He had a sleep study in January that they were told was mild ANNA MARIE and "not worth the trouble" of a CPAP. He was dx with early dementia and started on aricept on 12/31/16, 5mg. They were told to increase to 10mg which they did at some point in January. states she has not noted any improvement in his short term memory. Pt notes he feels no different. Physical Exam General Appearance: WD/WN, no apparent distress Head: normocephalic, atraumatic Eyes: normal inspection, EOMI ENT: hearing grossly normal Neck: supple, + pertinent finding (Well circumscribed mass that is freely movable on the posteral L c-spine, roughly golf ball sized, nonTTP) Respiratory/Chest: normal breath sounds, no respiratory distress Cardiovascular: no edema, normal peripheral pulses, + bradycardia Abdomen/GI: non tender, soft Extremities/Musculoskelatal: no calf tenderness, no pedal edema Neurologic/Psych: alert, normal mood/affect, oriented x 3 Skin: normal color, warm/dry Hospital Course: 66 y/o M who was admitted for observation on 03/16 after multiple syncopal episodes Syncope: uncertain etiology, bradycardia/dysrhythmia vs aricept side effect - EKG noted as andrey without block, will monitor on tele - no events overnight on tele, bradycardia resolved - CXR neg for acute processes - 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 Will ask neurology to make other recommendations as an outpatient for cognitive improvement with other medications if they deem reasonable. - + orthostatics in the ED but none overnight. - ANNA MARIE seem unlikely as Overnight pulse ox was completed and passed - would not require O2 overnight Hypokalemia - Resolved, initially was 3.2 and was replaced to 3.6 HTN: - Hyzaar 50-12.5 Q HS continued, pt is not on a beta carrillo HLD - continue lovastatin 60 mg QHS Dementia: - notes no improvement on aricept x2 months - If this is thought to be causing sx- will discontinue and f/u with Dr. Rosales in the office - B12 07/2016 was WNL, will not repeat C-spine lipoma: - present for years, states possibly a bit larger in the last year - Not in an area that should likely cause vascular impingement DVT ppx: ambulation CODE STATUS: Full code Disposition: From home, lives with , discharge to home today Total Time Spent: Greater than 30 minutes This includes examination of the patient, discharge planning, medication reconciliation, and communication with other providers. Discharge Instructions Please refer to the electronic Patient Visit Report (Discharge Instructions) for additional information. Follow-Up - Dr. Card tomorrow - Dr. Rosales in next few weeks, my nurse navigator will work on getting you the appointment and contact you Additional Copies To Bandar Card M.D.
[2017-03-17 11:01] VITALS: BP 158/85; PULSE 64; TEMP 36.9; O2SAT 97
== END 2017-03-17 11:14 | disposition home or self-care (01) ==
LOC: C.EDB 08:13 → C.2E 12:04 → ENRESERV 13:34
PROVIDERS: ADMIT Family Medicine; ATTEND Internal Medicine
DX: R55 Syncope and collapse (principal); E87.6 Hypokalemia; E78.5 Hyperlipidemia, unspecified; I10 Essential (primary) hypertension; F03.90 Unspecified dementia, unspecified severity, without behavioral disturbance, psychotic disturbance, mood disturbance, and anxiety; G47.33 Obstructive sleep apnea (adult) (pediatric); Z79.899 Other long term (current) drug therapy

== ENCOUNTER → 2017-08-10 | Outpatient (CLI) | payer BC ==
[~2017-08-10] MED LIST changes: -DONE10TA12 PO; -LOSA1TAB PO; -LOVA10TA3 PO
== END | disposition home or self-care (01) ==
LOC: C.LAB1850 07:40
PROVIDERS: ATTEND Urology
DX: R97.20 Elevated prostate specific antigen [PSA] (principal)

== ENCOUNTER → 2017-12-09 | Outpatient (CLI) | payer BC ==
[2017-12-09 11:13] LABS: HEMATOCRIT 38.7 % (42-52); HEMOGLOBIN 13.4 g/dL (14.0-18.0); MEAN CELL VOLUME 89.2 fL (80-100); MEAN CORPUSCULAR HEMOGLOBIN 30.9 pg (25-34); MEAN CORPUSCULAR HGB CONC 34.6 g/dl (32-36); MEAN PLATELET VOLUME 10.9 fL (7.4-10.4); PLATELET COUNT 186 K/uL (130-400); RED CELL DISTRIBUTION WIDTH CV 12.5 % (11.5-14.5); RED CELL DISTRIBUTION WIDTH SD 40.3 fL (36.4-46.3); WHITE BLOOD COUNT 5.69 K/uL (4.8-10.8)
[2017-12-09 11:24] LABS: ALBUMIN 3.7 gm/dl (3.4-5.0); ALKALINE PHOSPHATASE 82 U/L (45-117); ALT/SGPT 25 U/L (12-78); AST/SGOT 20 U/L (15-37); BLOOD UREA NITROGEN 21 mg/dl (7-18); CALCIUM 9.5 mg/dl (8.5-10.1); CARBON DIOXIDE 30 mmol/L (21-32); CREATININE 1.27 mg/dl (0.60-1.40); GLUCOSE 132 mg/dl (70-99); POTASSIUM 3.6 mmol/L (3.5-5.1); SODIUM 139 mmol/L (136-145); TOTAL PROTEIN 6.9 gm/dl (6.4-8.2)
== END | disposition home or self-care (01) ==
LOC: C.LAB1850 09:17
PROVIDERS: ATTEND Internal Medicine
DX: R63.4 Abnormal weight loss (principal)

== ENCOUNTER 2023-03-16 08:48 | Inpatient (IN) ==
--- NOTE | 2023-03-16 09:03 | Emergency Department Note ---
Impression & Plan Ventricular tachycardia ED Provider Note NAME: CHU MANCILLA AGE: 72 SEX: M : 1950 ARRIVES VIA: Ambulance INFORMANT: Patient ED PROVIDER(S): João Perez DO CHIEF COMPLAINT: Altered mental status HPI: Patient is a 72-year-old male with a past medical history of A-fib on apixaban, Alzheimer's disease with dementia, who presents to the ER who was found unresponsive by police initially. History is obtained by EMS. Police were allegedly called to scene as he was unresponsive with agonal breathing. Upon arrival of EMS he was breathing but was confused and not answering questions. On transport they note that he has been improving. He initially had some left-sided weakness but that has resolved. Patient denies all other complaints. He does not remember this occurring. He does believe he took all of his medications this morning and notes that he does take a blood thinner. ADDITIONAL HISTORY OBTAINED: Per HPI Chronic Medical/Social Conditions Affecting Care: Per HPI PAST MEDICAL HISTORY:See Below PAST SURGICAL HISTORY:See Below FAMILY HISTORY:See Below SOCIAL HISTORY:See Below HOME MEDICATIONS:See Below ALLERGIES:See Below VITALS:See Below PHYSICAL EXAMINATION: GENERAL: Sitting up in bed, alert, chronically ill appearing, well nourished, no distress, non-toxic EYE EXAM: normal conjunctiva. PERRL and EOM's intact. OROPHARYNX: no exudate, no erythema, lips, buccal mucosa, and tongue normal and mucous membranes are moist NECK: supple, no nuchal rigidity, no adenopathy, non-tender LUNGS: Clear to auscultation. Normal chest wall mechanics HEART: no murmurs, S1 normal and S2 normal ABDOMEN: abdomen soft, non-tender, normo-active bowel sounds, no masses, no rebound or guarding. BACK: Back is symmetrical on inspection and there is no deformity, no midline tenderness, no CVA tenderness. SKIN: no rashes and no bruising UPPER EXTREMITIES: upper extremities are grossly normal. LOWER EXTREMITIES: No pitting edema. NEURO EXAM: Oriented to person and place but not year, cranial nerves II-XII intact, normal speech, no weakness of arms, no weakness of legs. No drift. Finger to nose intact. Gross sensation intact. MEDICAL DECISION MAKING: Patient is a 72-year-old male who presents ER brought in by EMS found by police to be unresponsive with agonal breathing which resolved very quickly. IV was established blood work was obtained. Labs show mild leukopenia. Mild anemia at 12. INR 1.2. BMP along with LFTs bilirubin and magnesium was unremarkable. Troponin was negative. TSH unremarkable. Interpretation of the loop recorder shows V. tach for 3 minutes. Did contact cardiology. They presented at bedside. Patient was discussed with the hospitalist and was admitted for further work-up of his V. tach. He remained stable while in the ER. External Records Reviewed: Saw Dr. Dick on 01/2023 for A-fib Consults/Care Managements Discussions: Per [facility] Triage Nursing notes reviewed. Limited review of prior medical records performed Vital Signs: reviewed and remarkable for no significant abnormalities Differential diagnosis: Differential Diagnosis includes but is not limited to ischemic Stroke, hemorrhagic stroke, bells palsy, mass, neoplasm, migraine headache, seizure, subarachnoid hemorrhage, TIA, and transient global amnesia. ER treatment provided: See below Diagnostics interpreted by me include EKG and cardiac monitoring as listed below: -Cardiac Monitoring: An order was placed for continuous cardiac monitoring. The monitor shows a rate of 60 with afibrhythm. -ECG: A-fib rate of 60 with normal axis No PVCs QTc 438 -Laboratory studies:Interpreted by me as stated above in MDM and shown below. Imaging studies: Xrays: As interpreted by me: Portable AP upright 1 view of the chest shows no focal infiltrate CTs show: CT angios of the head and neck are negative Procedures:none Critical Care: None Past Med/Surg History Medical History Atrial fibrillation Basal cell carcinoma (BCC) of back Benign essential tremor Benign prostate hyperplasia Dementia Hyperlipidemia Hypertension Implantable loop recorder present MCI (mild cognitive impairment) with memory loss Mixed Alzheimer's and vascular dementia with behavior disturbances On anticoagulant therapy Seborrheic keratosis Transient ischemic attack (TIA) Surgical History History of colonoscopy History of open reduction and internal fixation (ORIF) procedure History of removal of cyst (11/29/22) History of repair of right rotator cuff History of right inguinal hernia repair History of wisdom tooth extraction Hx of left inguinal hernia repair Status post placement of implantable loop recorder Family History Father Family history of diabetes mellitus Diabetes Heart disease Grandfather (Paternal) Family history of diabetes mellitus Myocardial infarction Grandmother (Paternal) Alzheimer disease Myocardial infarction Brother Cardiac disorder Cancer Heart disease Mother Stroke Sister Breast cancer Other No family history of adverse response to anesthesia Denies family history of Ovarian cancer Prostate cancer Social History Smoking Status: Never smoker Second Hand Exposure: No; Do You Dip or Chew Tobacco: No; Hx Alcohol Use: Yes Alcohol type: beer Alcohol Intake Frequency: Monthly or Less Hx Substance Use: No Preferred Language: [place] Communication Ability: Effective Communication Ability Comment: alert & oriented 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: No Beliefs That Will Affect Care: None marital status: Current Living Situation: Spouse current occupational status: retired How many Children do You have: 2 Feels Safe at Home: Yes Childhood Exposure to Second-Hand Smoke: Yes Diet: regular during the past year weight has: remained stable Dental Care, Regularly: Yes Physical Activity Frequency: 3-4 Times per Week Seatbelt Use: always Sunscreen Use: Yes Assistive Devices: Glasses and Hearing Aid - Bilateral Allergies Allergies Allergy/AdvReac Type Severity Reaction Status Date / Time Penicillins Allergy Intermediate Gastrointestinal Verified 01/31/23 10:39 Upset Home Meds Home Medications Medication Instructions Recorded Confirmed coenzyme Q10 100 mg capsule 100 mg PO QPM 05/31/18 03/16/23 (CoQ-10) multivitamin (Daily Value tablet) 1 tab PO QPM 05/31/18 03/16/23 cholecalciferol (vitamin D3) 25 25 mcg PO QPM 04/07/21 03/16/23 mcg (1,000 unit) capsule (Vitamin D3) diltiazem HCl 120 mg capsule,24 120 mg PO QPM 10/04/22 03/16/23 hr,extended release (Tiadylt ER) aspirin 81 mg capsule ([place]) 81 mg PO 3XWK 11/03/22 03/16/23 dutasteride 0.5 mg capsule 0.5 mg PO QPM 11/23/22 03/16/23 (Avodart) resveratrol 1 cap PO QPM 11/23/22 03/16/23 losartan 50 mg tablet (Cozaar) 50 mg PO QPM 03/16/23 03/16/23 memantine 10 mg tablet (Namenda) 10 mg PO QAM 03/16/23 03/16/23 metoprolol succinate 25 mg 25 mg PO QPM 03/16/23 03/16/23 tablet,extended release 24 hr (Toprol XL) Previous Rx's Medication Instructions Recorded apixaban 5 mg tablet (Eliquis) 5 mg PO BID #180 tabs 05/05/22 lovastatin 40 mg tablet 40 mg PO PM #90 tabs 02/07/23 Results & Data (ED) Vital Signs Vital Signs - 24 hr 03/16/23 09:00 03/16/23 09:00 03/16/23 09:00 Temperature 36.5 C 36.5 C Temperature Source Oral Oral Pulse Rate 70 Pulse Rate from SpO2 Sensor Respiratory Rate 14 14 Respiratory Effort / Characteristics Non-Labored Non-Labored Respiratory Depth Normal Normal Blood Pressure 136/83 Blood Pressure Mean 100 Pulse Oximetry 93 93 Oxygen Delivery Method Room Air Room Air Room Air Sepsis Recent Fever Within 48 Hours No Sepsis New/Unexplained Change in Mental Status Yes Sepsis Action Taken by Nursing No Action Required 03/16/23 09:05 03/16/23 09:06 03/16/23 09:10 Temperature Temperature Source Pulse Rate 70 80 82 Pulse Rate from SpO2 Sensor 76 76 Respiratory Rate 21 19 Respiratory Effort / Characteristics Respiratory Depth Blood Pressure Blood Pressure Mean Pulse Oximetry 93 94 Oxygen Delivery Method Sepsis Recent Fever Within 48 Hours Sepsis New/Unexplained Change in Mental Status Sepsis Action Taken by Nursing 03/16/23 09:20 03/16/23 09:30 03/16/23 09:30 Temperature Temperature Source Pulse Rate 56 L 56 L Pulse Rate from SpO2 Sensor 63 55 L Respiratory Rate 20 22 Respiratory Effort / Characteristics Respiratory Depth Blood Pressure 149/81 H Blood Pressure Mean 120 Pulse Oximetry 100 100 Oxygen Delivery Method Sepsis Recent Fever Within 48 Hours Sepsis New/Unexplained Change in Mental Status Sepsis Action Taken by Nursing 03/16/23 09:40 03/16/23 09:50 03/16/23 10:00 Temperature Temperature Source Pulse Rate 62 54 L 47 L Pulse Rate from SpO2 Sensor 69 55 L 49 L Respiratory Rate 20 17 17 Respiratory Effort / Characteristics Respiratory Depth Blood Pressure Blood Pressure Mean Pulse Oximetry 98 98 97 Oxygen Delivery Method Sepsis Recent Fever Within 48 Hours Sepsis New/Unexplained Change in Mental Status Sepsis Action Taken by Nursing 03/16/23 10:00 03/16/23 10:14 Temperature Temperature Source Pulse Rate 54 L Pulse Rate from SpO2 Sensor Respiratory Rate 15 Respiratory Effort / Characteristics Respiratory Depth Blood Pressure 149/85 H 138/71 Blood Pressure Mean 101 93 Pulse Oximetry 100 Oxygen Delivery Method Sepsis Recent Fever Within 48 Hours Sepsis New/Unexplained Change in Mental Status Sepsis Action Taken by Nursing Laboratory Data 03/16/23 09:06 03/16/23 09:06 Lab Results 03/16/23 03/16/23 Range/Units 09:06 09:10 WBC 4.35 L (4.8-10.8) K/ul RBC 4.03 L (4.70-6.10) M/uL Hgb 12.5 L (14.0-18.0) g/dl POC Hgb 11.6 L (14.0-18.0) g/dl Hct 36.8 L (42.0-52.0) % POC Hct 34 L (42-52) % MCV 91.3 (80.0-100.0) fL MCH 31.0 (25.0-34.0) pg MCHC 34.0 (32.0-36.0) g/dL RDW Std Deviation 39.0 (36.4-46.3) fL RDW Coeff of Jovani 11.7 (11.5-14.5) % Plt Count 161 (130-400) K/uL MPV 10.3 (9.4-12.4) fL Immature Gran % (Auto) 0.2 % Neut % (Auto) 58.6 % Lymph % (Auto) 31.5 % York % (Auto) 6.0 % Eos % (Auto) 3.0 % Baso % (Auto) 0.7 % Neut # (Auto) 2.55 (1.40-6.50) K/uL Lymph # (Auto) 1.37 (1.20-3.40) K/uL York # (Auto) 0.26 (0.11-0.59) K/uL Eos # (Auto) 0.13 (0.00-0.50) K/uL Baso # (Auto) 0.03 (0.00-0.20) K/uL Immature Gran # (Auto) 0.01 (0.01-0.20) K/uL PT 12.5 H (9.0-12.0) Seconds INR 1.2 H (0.9-1.1) APTT 25.6 (21.0-31.0) Seconds PTT Ratio 0.9 POC Sodium 135 (135-144) mmol/L Sodium 134 L (136-145) mmol/L POC Potassium 3.7 (3.3-5.0) mmol/L Potassium 3.7 (3.5-5.1) mmol/L POC Chloride 97 L (101-112) mmol/L Chloride 101 (98-107) mmol/L Carbon Dioxide 28 (21-32) mmol/L POC Total CO2 26 (24-31) mmol/L Anion Gap 5 (3-11) POC Anion Gap 17.0 (16-25) mmol/L POC BUN 25 H (7-18) mg/dl BUN 26 H (6-23) mg/dl Creatinine 1.11 (0.6-1.4) mg/dl POC Creatinine 1.3 (0.6-1.3) mg/dl Est Cr Clr Drug Dosing 62.0 ml/min Est GFR ( Amer) 75.9 ml/min Est GFR (Non-Af Amer) 65.5 ml/min BUN/Creatinine Ratio 23.4 H (10-20) Glucose 204 H (70-99(Fasting)) mg/dl POC Glucose 216 H (70-99) mg/dl POC Glucose (other) 199 H (70-99) mg/dl Calcium 9.1 (8.6-10.3) mg/dl POC Ioniz Calcium Mavis 1.22 (1.12-1.32) mmol/l Magnesium 1.9 (1.7-2.4) mg/dl Total Bilirubin 0.7 (0.2-1.0) mg/dl AST 37 (13-39) U/L ALT 34 (7-52) U/L Alkaline Phosphatase 75 (34-104) U/L Troponin I High Sens 10.0 (0-20) pg/ml Total Protein 5.5 L (6.0-8.3) gm/dl Albumin 3.6 (3.4-5.0) gm/dl Globulin 1.9 L (2.5-4.0) gm/dl Albumin/Globulin Ratio 1.9 (0.9-2) TSH 3.189 (0.300-4.500) uIu/ml Administered Medications Amiodarone HCl/Dextrose (Nexterone / D5w) 360 mg in 200 mls @ 33.333 mls/hr IV ONE ONE Stop: 03/16/23 17:29 Last Admin: 03/16/23 12:57 Dose: 1 mg/min, 33.3 mls/hr Documented By: CINDY Co-signed By: PAYAL Discontinued Medications Magnesium Sulfate/Dextrose (Magnesium Sulfate / D5w) 1 gm in 100 mls @ 100 mls/hr IV Q1H REJI Stop: 03/16/23 12:22 Last Infusion: 03/16/23 14:28 Dose: Infused Documented By: Admin: 03/16/23 13:21 Dose: 100 mls/hr Documented By: Infusion: 03/16/23 13:20 Dose: Infused Documented By: Admin: 03/16/23 12:21 Dose: 100 mls/hr Documented By: CINDY Potassium Chloride (K Malick / Wtr) 10 meq in 100 mls @ 100 mls/hr IV Q1H REJI Stop: 03/16/23 12:29 Last Infusion: 03/16/23 14:28 Dose: Infused Documented By: Admin: 03/16/23 13:21 Dose: 100 mls/hr Documented By: Infusion: 03/16/23 13:21 Dose: Infused Documented By: Admin: 03/16/23 12:21 Dose: 100 mls/hr Documented By: CINDY Amiodarone HCl/Dextrose (Nexterone / D5w) 150 mg in 100 mls @ 600 mls/hr IV NOW STA Stop: 03/16/23 11:20 Last Infusion: 03/16/23 12:51 Dose: Infused Documented By: CINDY Co-signed By: PAYAL Admin: 03/16/23 12:40 Dose: 600 mls/hr Documented By: CINDY Co-signed By: TOBIAS Ioversol (Optiray 320 125ml) 115 ml IV ONCE ONE Stop: 03/16/23 09:05 Last Admin: 03/16/23 09:05 Dose: 115 ml Documented By: MARCELINO Imaging Data Radiologist's Impression: Head CT 03/16/23 08:47 CT OF THE HEAD WITHOUT CONTRAST CLINICAL HISTORY: neuro deficit, acute stroke suspected COMPARISON STUDY: MRI of the brain March 05, 2020. Head CT December 09, 2021. TECHNIQUE: Helical axial images of the head were obtained without IV contrast. Automated exposure control was utilized for the study. A dose lowering technique was utilized adhering to the principles of ALARA. FINDINGS: No acute intracranial hemorrhage, midline shift or mass effect is present. The ventricular system is stable. White matter hypodensities are unchanged. Old right caudate head is unchanged. The basal cisterns are patent. No extra-axial collections are present. There are no findings to suggest acute dural sinus thrombosis or acute territorial infarct. No acute calvarial fracture is present. IMPRESSION: No acute intracranial findings. No change in appearance of the brain. ACT 112: Negative or not required by law. Electronically signed by: Delonte Castro M.D. 03/16/2023 9:11 AM Head CTA 03/16/23 08:47 CTA ANGIOGRAPHY OF THE HEAD CLINICAL HISTORY: neuro deficit, acute stroke suspected COMPARISON STUDY: Head CT December 09, 2021. TECHNIQUE: Helical axial images of the head were obtained following uneventful intravenous administration of 115 cc of Optiray. Sagittal and coronal reconstructions were viewed as well as maximal intensity projections on an independent 3-D workstation. Automated exposure control was utilized for the study. A dose lowering technique was utilized adhering to the principles of ALARA. CT DOSE: 8.83 mGy.cm FINDINGS: This exam is mildly compromised by motion artifact. No large vessel occlusion is present. No intracranial aneurysm is identified. There are moderate to severe stenosis within the intracranial portions of the bilateral vertebral arteries. There is moderate plaque within the bilateral cavernous carotids with suspected moderate stenosis. The head CT will be reported separately. Ventricular system is stable. Basal cisterns are patent. There are no extra- axial collections. There are no calvarial fractures. IMPRESSION: 1. No large vessel occlusion. No intracranial aneurysm. Exam mildly compromised by motion artifact. 2. Moderate to severe stenoses within the bilateral intracranial vertebral arteries. Moderate plaque within the bilateral cavernous carotids with suspected moderate stenosis. ACT 112: Negative or not required by law. Electronically signed by: Delonte Castro M.D. 03/16/2023 9:21 AM Neck CTA 03/16/23 08:47 CT ANGIOGRAPHY OF THE NECK WITH CONTRAST CLINICAL HISTORY: neuro deficit, acute stroke suspected COMPARISON STUDY: Cervical spine CT December 09, 2021. Technique: CT angiography of the carotid and vertebral arteries was obtained using Optiray and 3D reconstruction on an independent workstation. NASCET criteria was utilized. Automated exposure control was utilized for the study. A dose lowering technique was utilized adhering to the principles of ALARA. Findings: Visualized portions of the lung apices are unremarkable. There is no cervical lymphadenopathy. No cervical spine fracture is noted. There is moderate plaque within the proximal bilateral internal carotid arteries without significant stenosis. The bilateral common carotid arteries are also patent. There is no aneurysm or dissection within the neck. There is mild stenosis at the origin of the right vertebral artery. There are moderate to severe multifocal stenoses within the intracranial portions of the vertebral arteries. Head CT will be reported separately. IMPRESSION: 1. Moderate atherosclerotic plaque within the proximal bilateral internal carotid arteries without significant stenosis. 2. Mild stenosis at the origin of the right vertebral artery. Moderate to severe stenoses within the intracranial portions of the bilateral vertebral arteries. ACT 112: Negative or not required by law. Electronically signed by: Delonte Castro M.D. 03/16/2023 9:16 AM Discharge Plan Visit Data Chief Complaint: Stroke Alert Stated Complaint: STROKE ALERT ED Provider: João Perez Discharge Problem: Ventricular tachycardia Patient Disposition: Admitted As Inpatient Discharge Instructions Interventions: ED Discharge Assessment Last Done: 03/16/23 12:44
[2023-03-16] MEDS ORDERED: OPTIRAY 320 125ml IV ONE (09:04)
--- NOTE | 2023-03-16 09:13 | CT Scan Report ---
CT OF THE HEAD WITHOUT CONTRAST CLINICAL HISTORY: neuro deficit, acute stroke suspected COMPARISON STUDY: MRI of the brain March 05, 2020. Head CT December 09, 2021. TECHNIQUE: Helical axial images of the head were obtained without IV contrast. Automated exposure con trol was utilized for the study. A dose lowering technique was utilized adhering to the principles o f ALARA. FINDINGS: No acute intracranial hemorrhage, midline shift or mass effect is present. The ventricular system is stable. White matter hypodensities are unchanged. Old right caudate head is unchanged. The basal cisterns are patent. No extra-axial collections are present. There are no findings to suggest a cute dural sinus thrombosis or acute territorial infarct. No acute calvarial fracture is present. IMPRESSION: No acute intracranial findings. No change in appearance of the brain. ACT 112: Negative or not required by law. Electronically signed by: Delonte Castro M.D. 03/16/2023 9:11 AM
--- NOTE | 2023-03-16 09:18 | CT Scan Report ---
CT ANGIOGRAPHY OF THE NECK WITH CONTRAST CLINICAL HISTORY: neuro deficit, acute stroke suspected COMPARISON STUDY: Cervical spine CT December 09, 2021. Technique: CT angiography of the carotid and vertebral arteries was obtained using Optiray and 3D rec onstruction on an independent workstation. NASCET criteria was utilized. Automated exposure control was utilized for the study. A dose lowering technique was utilized adhering to the principles of ALA RA. Findings: Visualized portions of the lung apices are unremarkable. There is no cervical lymphadenopat hy. No cervical spine fracture is noted. There is moderate plaque within the proximal bilateral inter nal carotid arteries without significant stenosis. The bilateral common carotid arteries are also pat ent. There is no aneurysm or dissection within the neck. There is mild stenosis at the origin of the right vertebral artery. There are moderate to severe multifocal stenoses within the intracranial port ions of the vertebral arteries. Head CT will be reported separately. IMPRESSION: 1. Moderate atherosclerotic plaque within the proximal bilateral internal carotid arteries without si gnificant stenosis. 2. Mild stenosis at the origin of the right vertebral artery. Moderate to severe stenoses within the intracranial portions of the bilateral vertebral arteries. ACT 112: Negative or not required by law. Electronically signed by: Delonte Castro M.D. 03/16/2023 9:16 AM
[2023-03-16 09:23] LABS: Basophils # (auto) 0.03 K/uL (0.00-0.20); Basophils % (auto) 0.7 %; Eosinophils # (auto) 0.13 K/uL (0.00-0.50); Hematocrit (blood only) 36.8 % (42.0-52.0); Hemoglobin 12.5 g/dl (14.0-18.0); Immature Granulocytes # (auto) 0.01 K/uL (0.01-0.20); Immature Granulocytes % (auto) 0.2 %; Lymphocytes # (auto) 1.37 K/uL (1.20-3.40); Lymphocytes % (auto) 31.5 %; Mean Corpuscular Volume 91.3 fL (80.0-100.0); Mean Platelet Volume 10.3 fL (9.4-12.4); Monocytes # (auto) 0.26 K/uL (0.11-0.59); Neutrophils # (auto) 2.55 K/uL (1.40-6.50); Neutrophils % (auto) 58.6 %; Platelet Count 161 K/uL (130-400); RDW Coefficient of Variation 11.7 % (11.5-14.5); Red Blood Count 4.03 M/uL (4.70-6.10); White Blood Count 4.35 K/ul (4.8-10.8)
--- NOTE | 2023-03-16 09:23 | CT Scan Report ---
CTA ANGIOGRAPHY OF THE HEAD CLINICAL HISTORY: neuro deficit, acute stroke suspected COMPARISON STUDY: Head CT December 09, 2021. TECHNIQUE: Helical axial images of the head were obtained following uneventful intravenous administr ation of 115 cc of Optiray. Sagittal and coronal reconstructions were viewed as well as maximal inten sity projections on an independent 3-D workstation. Automated exposure control was utilized for the study. A dose lowering technique was utilized adhering to the principles of ALARA. CT DOSE: 8.83 mGy.cm FINDINGS: This exam is mildly compromised by motion artifact. No large vessel occlusion is present. N o intracranial aneurysm is identified. There are moderate to severe stenosis within the intracranial portions of the bilateral vertebral arteries. There is moderate plaque within the bilateral cavernous carotids with suspected moderate stenosis. The head CT will be reported separately. Ventricular syst em is stable. Basal cisterns are patent. There are no extra-axial collections. There are no calvarial fractures. IMPRESSION: 1. No large vessel occlusion. No intracranial aneurysm. Exam mildly compromised by motion artifact. 2. Moderate to severe stenoses within the bilateral intracranial vertebral arteries. Moderate plaque within the bilateral cavernous carotids with suspected moderate stenosis. ACT 112: Negative or not required by law. Electronically signed by: Delonte Castro M.D. 03/16/2023 9:21 AM
[2023-03-16 09:37] LABS: iSTAT Creatinine 1.3 mg/dl (0.6-1.3); iSTAT Hemoglobin 11.6 g/dl (14.0-18.0); iSTAT Ionized Calcium 1.22 mmol/l (1.12-1.32); iSTAT Potassium 3.7 mmol/L (3.3-5.0)
[2023-03-16 09:43] LABS: Albumin Globulin Ratio 1.9 (0.9-2); Albumin Level 3.6 gm/dl (3.4-5.0); BUN Creatinine Ratio 23.4 (10-20); Bilirubin,Total 0.7 mg/dl (0.2-1.0); Calcium 9.1 mg/dl (8.6-10.3); Est GFR (African American) 75.9 ml/min; Est GFR (Non-African American) 65.5 ml/min; Globulin 1.9 gm/dl (2.5-4.0); Magnesium 1.9 mg/dl (1.7-2.4); Potassium 3.7 mmol/L (3.5-5.1); Total Protein 5.5 gm/dl (6.0-8.3)
[2023-03-16 09:50] LABS: INR 1.2 (0.9-1.1); Partial Thromboplastin Ratio 0.9; Partial Thromboplastin Time 25.6 Seconds (21.0-31.0); Prothrombin Time 12.5 Seconds (9.0-12.0)
--- NOTE | 2023-03-16 10:24 | History & Physical Report ---
Date of Service March 16, 2023 Assessment & Plan (1) Syncope and collapse: Plan: -Admit to the PCU on tele -Currently stable and asymptomatic -Had a syncopal episode while going for his daily am walk in his neighborhood -Neighbor found him on the ground with agonal breathing, EMS was concerned for left-sided weakness -Back to neurologic baseline on arrival to ED, CT of the head negative for acute findings; CTA of the head shows Moderate to severe stenoses within the bilateral intracranial vertebral arteries -Loop recorder interrogation shows approximately 3 minute run of V-tach during his syncopal episode today -Cardiology consulted, appreciate their assistance >Patient will be started on amiodarone while admitted >Will hold Eliquis in preparation for cardiac cath tomorrow >Patient will likely have ICD placement prior to discharge -Will ensure mag is at or above 2.0 and potassium at or above 4.0 -At this time the most likely etiology of the patient's syncopal episode is his 3 minute run of V-tach, will still continue with stroke workup due to reported left-sided weakness -Will obtain MRI of the brain wo con due to left-sided weakness reported by EMS -Will obtain TTE -Q4h neuro checks -AM A1c and lipid panel -Hold anticoagulation for now, BL JACQUELYN's for DVT PPX -HH diet then NPO at midnight -AM CBC, BMP, mag, PT/INR (2) Ventricular tachycardia: Plan: -3 minute run on loop recoreder during syncopal episode this am -Currently in rate controlled a-fib -Appreciate Cardiology's assistance: >Will start normal IV amiodarone protocol with loading dose and infusion foll owing >Hold diltiazem for now, can continue metoprolol and losartan -Keep mag at 2.0 or higher and potassium at 4.0 or higher -Will obtain TTE -Continue to monitor on tele -Heart cath and possible ICD placement tomorrow (3) Vertebral artery stenosis: Plan: -Noted on CTA of the head/neck today -While it is more likely that his syncopal episode was due to his run of V-tach this am, cannot rule out mod-severe BL vertebral artery stenosis contributing -Currently back to neurologic baseline and asymptomatic -Already on Eliquis and aspirin -If concerning findings on MRI will touch base with Vascular surgery (4) Essential hypertension: Plan: -Stable -Continue Losartan per Cardiology (5) Mixed Alzheimer's and vascular dementia: Plan: -Back to his Neurologic baseline per -Continue Namenda (6) BPH with obstruction/lower urinary tract symptoms: Plan: -Continue Avodart (7) Paroxysmal atrial fibrillation: Plan: -Stable -Continue metoprolol per cardiology -Will hold Eliquis as he had his am dose and will be going for heart cath tomorrow Plan The patient was discussed with Dr. Diaz at the time of the admission History of Present Illness Chief Complaint: Stroke alert Primary Care Provider: Bandar Card MD Tunde is a 72 year old male with a PMH significant for afib on Eliquis, mixed Alzheimer's and vascular dementia with behavior disturbances, recurrent falls S/P patient activated loop recorder, HTN, and BPH who presented to the [facility] ED via EMS on 03/16 as a stroke alert. He remained stable while in the ED. Per the ED staff, the patient was out for a walk this am. A neighbor saw him laying on the ground next to the sidewalk and called police. He was reportedly having agonal breathing, garbled speech, and confusion when police arrived. On arrival to the ED the patient was alert and back to his neurologic baseline. Labs were significant for a glucose of 204. Ct of the head wo con was read as negative for acute findings. CTA of the head was read as 1. No large vessel occlusion. No intracranial aneurysm. Exam mildly compromised by motion artifact. 2. Moderate to severe stenoses within the bilateral intracranial vertebral arteries. Moderate plaque within the bilateral cavernous carotids with suspected moderate stenosis.. CTA of the neck was read as 1. Moderate atherosclerotic plaque within the proximal bilateral internal carotid arteries without significant stenosis. 2. Mild stenosis at the origin of the right vertebral artery. Moderate to severe stenoses within the intracranial portions of the bilateral vertebral arteries. The ED interrogated the patient's loop recorder which showed the patient to have sustained a 3 minute running of V-Tach during his syncopal episode. At the time of the exam the patient was sitting in bed in no acute distress with his sitting bedside. He states that he went for his normal morning walk around the neighborhood. He was feeling well when he woke and denies having any symptoms such as chest pain, heart palpitations, SOB, lightheadedness, or dizziness. He states that he just suddenly passed out. The ED confirms that EMS reported left-sided weakness on arrival but this has resolved. He currently is without complaints of pain. He denies current headache, changes in vision, hearing, taste, and smell, chest pain, SOB, cough, abd pain, nausea, vomiting, diarrhea, dysuria, hematuria, melena, unilateral weakness, new paresthesias, and LE swelling. We discussed code status, he is a full code and would want his to make medical decisions for him if he could not make them himself. Please refer to Dr. Diaz's attestation for any changes to the treatment plan Allergies Allergy/AdvReac Type Severity Reaction Status Date / Time Penicillins Allergy Intermediate Gastrointestinal Verified 01/31/23 10:39 Upset Home Medications Medication Instructions Recorded Confirmed Type coenzyme Q10 100 mg capsule 100 mg PO QPM 05/31/18 03/16/23 History (CoQ-10) multivitamin (Daily Value tablet) 1 tab PO QPM 05/31/18 03/16/23 History cholecalciferol (vitamin D3) 25 25 mcg PO QPM 04/07/21 03/16/23 History mcg (1,000 unit) capsule (Vitamin D3) apixaban 5 mg tablet (Eliquis) 5 mg PO BID #180 tabs 05/05/22 03/16/23 Rx diltiazem HCl 120 mg capsule,24 120 mg PO QPM 10/04/22 03/16/23 History hr,extended release (Tiadylt ER) aspirin 81 mg capsule ([place]) 81 mg PO 3XWK 11/03/22 03/16/23 History dutasteride 0.5 mg capsule 0.5 mg PO QPM 11/23/22 03/16/23 History (Avodart) resveratrol 1 cap PO QPM 11/23/22 03/16/23 History lovastatin 40 mg tablet 40 mg PO PM #90 tabs 02/07/23 03/16/23 Rx losartan 50 mg tablet (Cozaar) 50 mg PO QPM 03/16/23 03/16/23 History memantine 10 mg tablet (Namenda) 10 mg PO QAM 03/16/23 03/16/23 History metoprolol succinate 25 mg 25 mg PO QPM 03/16/23 03/16/23 History tablet,extended release 24 hr (Toprol XL) Past Med/Surg History Medical History Atrial fibrillation Basal cell carcinoma (BCC) of back Benign essential tremor Benign prostate hyperplasia Dementia Hyperlipidemia Hypertension Implantable loop recorder present MCI (mild cognitive impairment) with memory loss Mixed Alzheimer's and vascular dementia with behavior disturbances On anticoagulant therapy Seborrheic keratosis Transient ischemic attack (TIA) Surgical History History of colonoscopy History of open reduction and internal fixation (ORIF) procedure History of removal of cyst (11/29/22) History of repair of right rotator cuff History of right inguinal hernia repair History of wisdom tooth extraction Hx of left inguinal hernia repair Status post placement of implantable loop recorder Family History Father Family history of diabetes mellitus Diabetes Heart disease Grandfather (Paternal) Family history of diabetes mellitus Myocardial infarction Grandmother (Paternal) Alzheimer disease Myocardial infarction Brother Cardiac disorder Cancer Heart disease Mother Stroke Sister Breast cancer Other No family history of adverse response to anesthesia Denies family history of Ovarian cancer Prostate cancer Social History Smoking Status: Never smoker Second Hand Exposure: No; Do You Dip or Chew Tobacco: No; Hx Alcohol Use: Yes Alcohol type: beer Alcohol Intake Frequency: Monthly or Less Hx Substance Use: No Preferred Language: Qatari Communication Ability: Effective Communication Ability Comment: alert & oriented x3 Magnetometer Operator Required: No Beliefs That Will Affect Care: None marital status: Current Living Situation: Spouse current occupational status: retired How many Children do You have: 2 Feels Safe at Home: Yes Childhood Exposure to Second-Hand Smoke: Yes Diet: regular during the past year weight has: remained stable Dental Care, Regularly: Yes Physical Activity Frequency: 3-4 Times per Week Seatbelt Use: always Sunscreen Use: Yes Assistive Devices: Glasses and Hearing Aid - Bilateral Physical Exam Physical Exam: Physical Exam: General: In no acute distress, stated age, well-nourished, good hygiene HEENT: Normocephalic, patient with non-bleeding abrasions on the bridge of the nose and forehead but is otherwise without trauma, no scleral icterus, pupils around round, symmetrical, and reactive to light, moist mucus membranes, trachea midline, no thyromegaly Chest/Pulm: No respiratory distress, symmetrical chest expansion, clear breath sounds throughout Cardiac: irregular rate and rhythm, no murmurs noted Abdomen: Negative for ascites and bruising, normoactive bowel sounds, soft, non-tender to palpation throughout Musculoskeletal: Symmetrical and without signs of acute trauma, upper and lower extremities with full ROM, no atrophy, spasticity, or flaccidity Extremities: Radial, dorsalis pedis, and posterior tibial pulses are intact and symmetrical, no edema noted in the BL LE's Skin: Warm, dry, no rashes , lesions, or scars noted Neuro: Alert and oriented to person, place, month, year, and president, no focal defects, CN II-XII tested and intact, negative cerebellar testing and BL pronator drift, no tremors noted Psych: No acute distress, calm and cooperative during the exam Results & Data Results & Data Vital Signs (Past 12 Hours) Vital Signs Temp Pulse Resp BP Pulse Ox O2 Del Method 03/16/23 09:30 56 L 22 100 03/16/23 09:30 149/81 H 03/16/23 09:20 56 L 20 100 03/16/23 09:10 82 19 94 03/16/23 09:06 80 03/16/23 09:05 70 21 93 03/16/23 09:00 36.5 C 14 93 Room Air 03/16/23 09:00 Room Air 03/16/23 09:00 36.5 C 70 14 136/83 93 Room Air Laboratory Results Abnormal lab results 03/16/23 03/16/23 Range/Units 09:06 09:10 WBC 4.35 L (4.8-10.8) K/ul RBC 4.03 L (4.70-6.10) M/uL Hgb 12.5 L (14.0-18.0) g/dl POC Hgb 11.6 L (14.0-18.0) g/dl Hct 36.8 L (42.0-52.0) % POC Hct 34 L (42-52) % PT 12.5 H (9.0-12.0) Seconds INR 1.2 H (0.9-1.1) Sodium 134 L (136-145) mmol/L POC Chloride 97 L (101-112) mmol/L POC BUN 25 H (7-18) mg/dl BUN 26 H (6-23) mg/dl BUN/Creatinine Ratio 23.4 H (10-20) Glucose 204 H (70-99(Fasting)) mg/dl POC Glucose 216 H (70-99) mg/dl POC Glucose (other) 199 H (70-99) mg/dl Total Protein 5.5 L (6.0-8.3) gm/dl Globulin 1.9 L (2.5-4.0) gm/dl Diagnostic Findings Head CT 03/16/23 08:47 CT OF THE HEAD WITHOUT CONTRAST CLINICAL HISTORY: neuro deficit, acute stroke suspected COMPARISON STUDY: MRI of the brain March 05, 2020. Head CT December 09, 2021. TECHNIQUE: Helical axial images of the head were obtained without IV contrast. Automated exposure control was utilized for the study. A dose lowering technique was utilized adhering to the principles of ALARA. FINDINGS: No acute intracranial hemorrhage, midline shift or mass effect is present. The ventricular system is stable. White matter hypodensities are unchanged. Old right caudate head is unchanged. The basal cisterns are patent. No extra-axial collections are present. There are no findings to suggest acute dural sinus thrombosis or acute territorial infarct. No acute calvarial fracture is present. IMPRESSION: No acute intracranial findings. No change in appearance of the brain. ACT 112: Negative or not required by law. Electronically signed by: Delonte Castro M.D. 03/16/2023 9:11 AM Head CTA 03/16/23 08:47 CTA ANGIOGRAPHY OF THE HEAD CLINICAL HISTORY: neuro deficit, acute stroke suspected COMPARISON STUDY: Head CT December 09, 2021. TECHNIQUE: Helical axial images of the head were obtained following uneventful intravenous administration of 115 cc of Optiray. Sagittal and coronal reconstructions were viewed as well as maximal intensity projections on an independent 3-D workstation. Automated exposure control was utilized for the study. A dose lowering technique was utilized adhering to the principles of ALARA. CT DOSE: 2027.83 mGy.cm FINDINGS: This exam is mildly compromised by motion artifact. No large vessel occlusion is present. No intracranial aneurysm is identified. There are moderate to severe stenosis within the intracranial portions of the bilateral vertebral arteries. There is moderate plaque within the bilateral cavernous carotids with suspected moderate stenosis. The head CT will be reported separately. Ventricular system is stable. Basal cisterns are patent. There are no extra- axial collections. There are no calvarial fractures. IMPRESSION: 1. No large vessel occlusion. No intracranial aneurysm. Exam mildly compromised by motion artifact. 2. Moderate to severe stenoses within the bilateral intracranial vertebral arteries. Moderate plaque within the bilateral cavernous carotids with suspected moderate stenosis. ACT 112: Negative or not required by law. Electronically signed by: Delonte Castro M.D. 03/16/2023 9:21 AM Neck CTA 03/16/23 08:47 CT ANGIOGRAPHY OF THE NECK WITH CONTRAST CLINICAL HISTORY: neuro deficit, acute stroke suspected COMPARISON STUDY: Cervical spine CT December 09, 2021. Technique: CT angiography of the carotid and vertebral arteries was obtained using Optiray and 3D reconstruction on an independent workstation. NASCET criteria was utilized. Automated exposure control was utilized for the study. A dose lowering technique was utilized adhering to the principles of ALARA. Findings: Visualized portions of the lung apices are unremarkable. There is no cervical lymphadenopathy. No cervical spine fracture is noted. There is moderate plaque within the proximal bilateral internal carotid arteries without significant stenosis. The bilateral common carotid arteries are also patent. There is no aneurysm or dissection within the neck. There is mild stenosis at the origin of the right vertebral artery. There are moderate to severe multifocal stenoses within the intracranial portions of the vertebral arteries. Head CT will be reported separately. IMPRESSION: 1. Moderate atherosclerotic plaque within the proximal bilateral internal carotid arteries without significant stenosis. 2. Mild stenosis at the origin of the right vertebral artery. Moderate to severe stenoses within the intracranial portions of the bilateral vertebral arteries. ACT 112: Negative or not required by law. Electronically signed by: Delonte Castro M.D. 03/16/2023 9:16 AM ECG Additional Comments: Atrial fibrillation with a competing junctional pacemaker Incomplete right bundle branch block Septal infarct , age undetermined Abnormal ECG When compared with ECG of 09-DEC-2021 09:46, Septal infarct is now Present Code Status & VTE Plan Code Status Full code VTE Prophylaxis Plan VTE Prophylaxis will be ordered: Yes Supervising Physician Co-Signing Physician Notes I personally saw and examined the patient. I verified all wilks points and agree with Quentin Hansen PA-C with the following exceptions and/or additions: 72 year old male presents to the ER after being found on the ground by a neighbor on the ground outside the morning. The patient remembers waking up this morning, having breakfast and going for a walk but cannot remember any chest pain, shortness of breath, dizziness or lightheadedness. Next remembers being on the floor. He denies any facial droop, change in speech, hearing or vision, one sided weakness or change in sensation. Loop recorder reportedly with 3 minute run of ventricular tachycardia. O/E Irregular rhythm, regular rate, no murmurs, Chest CTAB, Abdo SNT, no facial droop, PERRL, no pronator drift, 5/5 upper and lower extremity motor, normal extremity sensation equal bilaterally A/P Sustained ventricular tachycardia - IV amiodarone bolus and drip. Aim Mg > 2, K > 4, TTE, electrophysiology to consider cardiac cath + ICD Stroke-like symptoms - concern for some left sided weakness following syncopal event. Will complete stroke workup with MRI brain but given alternative explanation for syncope low suspicion of this. Can cancel further stroke protocol if MRI brain negative. A. Fib - rate controlled, continue metoprolol but stopping diltiazem per cardiology recommendations since starting on IV amiodarone. Holding Phagenesis PG Care Time/CCT Total # of Minutes Spent Total Time Spent with Patient: Total time spent is greater than 50% in coordination of care (as documented) at patient's floor/unit and/or counseling patient: Coding [place] [address] INT INP/OBS CARE 3/75MIN Patient Type Established Medical Decision Making Moderate Complexity Diagnoses Syncope and collapse R55 Ventricular tachycardia I47.20 Vertebral artery stenosis I65.09 Essential hypertension I10 Mixed Alzheimer's and vascular dementia G30.9; F01.50; F02.80 BPH with obstruction/lower urinary tract symptoms N40.1; N13.8 Paroxysmal atrial fibrillation I48.0
--- OUTSIDE RECORDS SUMMARY | 2023-03-16 10:29 | External Medical Summary | Summary of Care ---
Author Name Unknown Organization [facility] Address [address] [facility] [place] [address] Phone [phone] Care Team Providers Care Rug Setter [place] Name Role Phone Pro, Bandar Bradford MD Primary Care Provider [phone]- [phone] Reason for Visit * Reason Onset Date Comments Appointment 11/03/2022 Encounter Details Date Type Department Care Team Description 11/03/2022 Telephone Dermatology, Vini Shepherd [address] [id number] Lalita Neil PA-C [address] [place] [id number] Appointment Allergies Active Allergy Reactions Severity Noted Date Comments Penicillins 04/24/2021 documented as of this encounter (statuses as of 11/03/2022) Medications Medication Sig Dispensed Refills Start Date End Date Status Eliquis 5 MG Oral Tablet Take 1 Tablet by mouth in the morning and 1 Tablet before bedtime. 0 04/06/2021 Active hydroCHLOROthiazide 12.5 MG Oral Tablet (Hydrodiuril)Indicatio ns:in pm 0 03/18/2021 Active Metoprolol Succinate ER 25 MG Oral Tablet Extended Release 24 Hour (toPROL XL)Indications:in pm 0 04/21/2021 Acti ve Losartan Potassium 50 MG Oral Tablet (Cozaar)Indications:in pm 0 03/23/2021 Active Memantine HCl 10 MG Oral Tablet (Namenda) 0 01/19/2021 Act golden Coenzyme Q10 100 MG Oral Capsule Take 1 Capsule by mouth in the morning. 0 Active Multivitamin Adult Oral Tablet Chewable Take by mouth. 0 Active dilTIAZem HCl ER Coated Beads 120 MG Oral Capsule Extended Release 24 HourIndications:in pm Take 1 Capsule by mouth in the morning. 0 Active Vitamin D (Cholecalciferol) 50 MCG (1999) Oral Capsule Take by mouth. 0 Active Resveratrol 100 MG Oral Capsule Take by mouth. 0 Active Polyethylene Glycol 3350 17 GM Oral Packet Take 1 Packet by mouth in the morning. 1 tsp in the evening. . 0 Active Mupirocin 2 % External Ointment (Bactroban) Apply to cyst on upper back twice a day until healed 22 g 1 04/14/2022 Active documented as of this encounter (statuses as of 11/03/2022) Active Problems No known active problems documented as of this encounter (statuses as of 11/03/2022) Social History Tobacco Use Types Packs/Day Years Used Date Smoking Tobacco: Never Smokeless Tobacco: Never Alcohol Use Standard Drinks/Week Comments Not Currently 0 (1 standard drink = 0.6 oz pur e alcohol) Sex Assigned at Date Recorded Male 04/11/2022 8:08 PM [employer] Job Start Date Occupation Industry Not on file Not on file Not on file documented as of this encounter Miscellaneous Notes * Telephone Encounter - Cielo Mondragon LPN - 11/03/2022 9:47 AM EDT Patient's calling stating that he has another carbuncle. I explained that Lalita on maternity leave and we do not have any available appointments for several months. Offered them to call PCP - she states he does not have any appointments either. She states she called [facility] and they do not have any appointments. I told her she could take him to Urgent Care who could drain for him. Shewill discuss with her . documented in this encounter Plan of Treatment Scheduled Procedures Name Priority Associated Diagnoses Date/Ti me COLONOSCOPY FLEXIBLE PROXIMAL DIAGNOSTIC Recall Screen for colon cancer Health Maintenance Due Date Last Done Comments Lipid Panel 1949 Depression Screening, Annual for Pts 12 and Over 1961 Hepatitis C Screening 08/30/1967 DTaP,Tdap,and Td Vaccines (1 - Tdap) 1968 Cologuard 1994 Fecal Occult Blood Test 1994 Sigmoidoscopy 1994 Pneumococcal Vaccine: 65+ Years (1 - PCV) 2014 COVID-19 Vaccine (4 - Pfizer series) 03/18/2021 01/21/2021, 07/05/2020, 06/14/2020 Influenza Vaccine (FLU shot) (#1) 2022 01/21/2021, 03/06/2019, 03/18/2017 Colonoscopy 06/17/2031 06/16/2021, 06/16/2021 Colorectal Cancer Screening 06/17/2031 Zoster Vaccines Completed 01/10/2018, 10/04/2017 GARDASIL-HPV IMMUNIZATION SERIES Aged Out No longer eligible b ased on patient's age to complete this topic Hepatitis B Aged Out No longer eligi ble based on patient's age to complete this topic MENINGOCOCCAL (MENACTRA/MENVEO) Aged Out No longer eligible b ased on patient's age to complete this topic documented as of this encounter Medical Devices Not on filedocumented as of this encounter Care Teams Rug Setter [place]minster Relationship Specialty Start Date End Date Pro, Bandar Bradford MD [address] [facility] [place] [address] PCP - General Internal Medicine 04/23/21 documented as of this encounter
[2023-03-16] MEDS ORDERED: PHARMACIST DISCHARGE MED REC CONSULT PRN (10:54)
[2023-03-16] MEDS ORDERED: 0.2 MICRON FILTER SET 1 EACH IV STA (11:11)
[2023-03-16] MEDS ORDERED: STAT IV Infusion **Titration per Protocol STA (11:11)
[2023-03-16] MEDS ORDERED: AMIODARONE IV BOLUS & DRIP IV STA (11:11)
[2023-03-16] MEDS ORDERED: AMIODARONE / D5W 360 MG/200 ML BAG IV ONE (11:30)
--- NOTE | 2023-03-16 11:39 | Electrocardiogram Report ---
Test Reason : Blood Pressure : / mmHG Vent. Rate : 061 BPM Atrial Rate : 000 BPM P-R Int : 000 ms QRS Dur : 116 ms QT Int : 436 ms P-R-T Axes : 000 000 024 degrees QTc Int : 438 ms Atrial fibrillation with a competing junctional pacemaker Incomplete right bundle branch block Abnormal ECG Confirmed by Ravi Dick ([id number]) on 03/16/2023 11:38:51 AM Referred By: REFERRED SELF Confirmed By:Scott Dick
[2023-03-16] MEDS: MAGNESIUM SULFATE / D5W 1 GM/100 ML BAG IV SCH ×2 (12:21→13:21)
[2023-03-16] MEDS: POTASSIUM CHLORIDE / WTR 10 MEQ/100 ML PLCT IV SCH ×2 (12:21→13:21)
[2023-03-16] MEDS: AMIODARONE / D5W 150 MG/100 ML BAG IV STA ×2 (12:30→12:40)
--- NOTE | 2023-03-16 12:54 | Cardiology Consultation ---
Date of Consultation March 16, 2023 Assessment & Plan (1) Ventricular tachycardia: (2) Syncope and collapse: Plan 1. Ventricular tachycardia: The recording from his device suggests polymorphic ventricular tachycardia possibly ventricular fibrillation. This appears to have resolved spontaneously and he has miraculously not suffered a significant injury or worsening cognitive impairment. The etiology of the event is unclear. Previously known to have preserved LV systolic function. Not known to have ischemic heart disease. No symptoms recently to suggest an ischemic event and initial cardiac biomarker was normal. Electrolytes also normal. Not on any medication that would likely produce this event. Will supplement his potassium and magnesium per protocol Echocardiogram Continue metoprolol and add amiodarone today. Will discontinue diltiazem at this time Plan an evaluation for coronary disease to include coronary angiography tomorrow In the absence of a reversible 80 on G we will plan implantation of a single- chamber defibrillator. 2. Syncope: He has a history of syncope but no previously documented arrhythmias. Most likely etiology previously was felt to be bradycardia. This would be effectively treated by implantation of a defibrillator which can provide heart rate support. Today's episode precipitated by his ventricular arrhythmia. 3. Atrial fibrillation: Permanent. Adequate rate control. In the long run will continue his diltiazem and metoprolol provide is overall LV function is normal. Continue systemic anticoagulation,, interrupting it only to facilitate the aforementioned procedures. History of Present Illness Reason for Consultation: Syncope, ventricular tachycardia Requesting Physician: Emily Attending Physician: Chuck Diaz MD History of Present Illness The patient is a 72-year-old gentleman with a history of permanent atrial fibrillation and syncope. He has a previously implanted loop recorder. By report he was on his usual walk earlier this morning when he was found by a neighbor. The patient apparently was poorly conscious and had some agonal respirations. EMS was summoned and the patient was brought to the hospital for evaluation. He seems to have suffered a minor injury to his nose, but otherwise has been feeling well. He recalls being on his walk without any additional symptoms he did not recall any specific prodrome leading up to the event. No chest pain, breathing difficulty or dizziness. No sense of palpitation. In the past several days he has not had any new symptoms. He is an active individual who is accustomed to playing basketball and walking regularly. He not report any new limitations or symptoms associated with these activities. Specifically, he denies breathing difficulty or chest pain. No recent episodes of dizziness or syncope. At the time I interviewed the patient was feeling well. Again, no breathing difficulty or chest pain. Minimal discomfort associated with his fall. No specific pain in any location. Allergies Allergy/AdvReac Type Severity Reaction Status Date / Time Penicillins Allergy Intermediate Gastrointestinal Verified 01/31/23 10:39 Upset Home Medications Medication Instructions Recorded Confirmed Type coenzyme Q10 100 mg capsule 100 mg PO QPM 05/31/18 03/16/23 History (CoQ-10) multivitamin (Daily Value tablet) 1 tab PO QPM 05/31/18 03/16/23 History cholecalciferol (vitamin D3) 25 25 mcg PO QPM 04/07/21 03/16/23 History mcg (1,000 unit) capsule (Vitamin D3) apixaban 5 mg tablet (Eliquis) 5 mg PO BID #180 tabs 05/05/22 03/16/23 Rx diltiazem HCl 120 mg capsule,24 120 mg PO QPM 10/04/22 03/16/23 History hr,extended release (Tiadylt ER) aspirin 81 mg capsule ([place]) 81 mg PO 3XWK 11/03/22 03/16/23 History dutasteride 0.5 mg capsule 0.5 mg PO QPM 11/23/22 03/16/23 History (Avodart) resveratrol 1 cap PO QPM 11/23/22 03/16/23 History lovastatin 40 mg tablet 40 mg PO PM #90 tabs 02/07/23 03/16/23 Rx losartan 50 mg tablet (Cozaar) 50 mg PO QPM 03/16/23 03/16/23 History memantine 10 mg tablet (Namenda) 10 mg PO QAM 03/16/23 03/16/23 History metoprolol succinate 25 mg 25 mg PO QPM 03/16/23 03/16/23 History tablet,extended release 24 hr (Toprol XL) Patient History Medical History Atrial fibrillation Basal cell carcinoma (BCC) of back Benign essential tremor Benign prostate hyperplasia Dementia Hyperlipidemia Hypertension Implantable loop recorder present MCI (mild cognitive impairment) with memory loss Mixed Alzheimer's and vascular dementia with behavior disturbances On anticoagulant therapy Seborrheic keratosis Transient ischemic attack (TIA) Surgical History History of colonoscopy History of open reduction and internal fixation (ORIF) procedure History of removal of cyst (11/29/22) History of repair of right rotator cuff History of right inguinal hernia repair History of wisdom tooth extraction Hx of left inguinal hernia repair Status post placement of implantable loop recorder Family History Father Family history of diabetes mellitus Diabetes Heart disease Grandfather (Paternal) Family history of diabetes mellitus Myocardial infarction Grandmother (Paternal) Alzheimer disease Myocardial infarction Brother Cardiac disorder Cancer Heart disease Mother Stroke Sister Breast cancer Other No family history of adverse response to anesthesia Denies family history of Ovarian cancer Prostate cancer Social History Smoking Status: Never smoker Second Hand Exposure: No; Do You Dip or Chew Tobacco: No; Hx Alcohol Use: Yes Alcohol type: beer Alcohol Intake Frequency: Monthly or Less Hx Substance Use: No Preferred Language: Niuean Communication Ability: Effective Communication Ability Comment: alert & oriented x3 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 Some recent upper respiratory symptoms. Physical Exam Physical Exam: The patient is alert and oriented. Mood and affect appeared normal. He answered all questions appropriately. HEENT: Pupils are equal and reactive to light and accommodation. Extraocular movements are intact. The sclerae are anicteric. Neuro: Cranial nerves intact Lungs: Clear to auscultation bilaterally. He has good air movement without use of accessory muscles. No rales wheezes or rhonchi. Cardiac: Heart demonstrates a regular rate and rhythm. Normal S1 and S2. No murmurs on examination. Pulses: The patient has palpable radial pulses bilaterally that are equal in intensity Extremities: There was no evidence of hypoperfusion. There is no cyanosis or clubbing. There is no edema. Skin: I did not appreciate any rashes on examination today. Abrasion on his no se Results & Data Vital Signs (Past 12 Hours) Vital Signs Temp Pulse Resp BP Pulse Ox O2 Del Method 03/16/23 10:00 149/85 H 03/16/23 10:00 47 L 17 97 03/16/23 09:50 54 L 17 98 03/16/23 09:40 62 20 98 03/16/23 09:30 56 L 22 100 03/16/23 09:30 149/81 H 03/16/23 09:20 56 L 20 100 03/16/23 09:10 82 19 94 03/16/23 09:06 80 03/16/23 09:05 70 21 93 03/16/23 09:00 36.5 C 14 93 Room Air 03/16/23 09:00 Room Air 03/16/23 09:00 36.5 C 70 14 136/83 93 Room Air Laboratory Results Abnormal Lab Results 03/16/23 03/16/23 09:06 09:10 WBC 4.35 L RBC 4.03 L Hgb 12.5 L POC Hgb 11.6 L Hct 36.8 L POC Hct 34 L MCV 91.3 MCH 31.0 MCHC 34.0 RDW Std Deviation 39.0 RDW Coeff of Jovani 11.7 Plt Count 161 MPV 10.3 Immature Gran % (Auto) 0.2 Neut % (Auto) 58.6 Lymph % (Auto) 31.5 [place] % (Auto) 6.0 Eos % (Auto) 3.0 Baso % (Auto) 0.7 Neut # (Auto) 2.55 Lymph # (Auto) 1.37 [place] # (Auto) 0.26 Eos # (Auto) 0.13 Baso # (Auto) 0.03 Immature Gran # (Auto) 0.01 PT 12.5 H INR 1.2 H APTT 25.6 PTT Ratio 0.9 POC Sodium 135 Sodium 134 L POC Potassium 3.7 Potassium 3.7 POC Chloride 97 L Chloride 101 Carbon Dioxide 28 POC Total CO2 26 Anion Gap 5 POC Anion Gap 17.0 POC BUN 25 H BUN 26 H Creatinine 1.11 POC Creatinine 1.3 Est Cr Clr Drug Dosing 62.0 Est GFR ( Amer) 75.9 Est GFR (Non-Af Amer) 65.5 BUN/Creatinine Ratio 23.4 H Glucose 204 H POC Glucose 216 H POC Glucose (other) 199 H Calcium 9.1 POC Ioniz Calcium Mavis 1.22 Magnesium 1.9 Total Bilirubin 0.7 AST 37 ALT 34 Alkaline Phosphatase 75 Troponin I High Sens 10.0 Total Protein 5.5 L Albumin 3.6 Globulin 1.9 L Albumin/Globulin Ratio 1.9 Diagnostic Findings Evaluation of the implanted loop recorder revealed that episode polymorphic ventricular tachycardia at the time of his event this morning. This lasted 3 minutes. Echocardiogram from 2017 demonstrating preserved LV systolic function without significant valvular heart disease ECG Additional Comments: EKG demonstrated atrial fibrillation with controlled ventricular rate. PG Care Time/CCT Total # of Minutes Spent Total Time Spent with Patient: Total time spent is greater than 50% in coordination of care (as documented) at patient's floor/unit and/or counseling patient: Coding Level of Care Code 80205 INT INP/OBS CARE 3/75MIN Diagnoses Ventricular tachycardia I47.20 Syncope and collapse R55
--- NOTE | 2023-03-16 13:28 | XCELERA ---
[id number]
--- NOTE | 2023-03-16 13:53 | XRay Report ---
SINGLE VIEW CHEST CLINICAL HISTORY: Syncope FINDINGS: An AP, portable, upright chest radiograph is compared to study dated 12/09/2021. The heart i s enlarged and noting atherosclerotic calcification of the thoracic aorta. The pulmonary vasculature is noncongested. Chronic interstitial thickening is similar to previous. The lungs and pleural spaces are clear. No pneumothorax is seen. The skeletal structures are osteopenic. The bony thorax is gross ly intact. IMPRESSION: Cardiomegaly with no active disease in the chest. ACT 112: Negative or not required by law. Electronically signed by: Yasmany Daily M.D. 03/16/2023 1:52 PM
[2023-03-16 14:40] LABS: Thyroid Stimulating Hormone 3.189 uIu/ml (0.300-4.500)
--- NOTE | 2023-03-16 14:50 | Magnetic Resonance Report ---
MRI OF THE BRAIN WITHOUT IV CONTRAST CLINICAL HISTORY: Strokelike symptoms. Left-sided weakness. COMPARISON STUDY: CT of the brain dated 03/16/2023. TECHNIQUE: MRI of the brain was performed utilizing various T1 and T2-weighted sequences in the axial , sagittal, and coronal planes. IV contrast was not administered for this examination. FINDINGS: Brain parenchyma: There is age-related involutional change noting moderate to advanced confluent subc ortical and periventricular microangiopathic disease. There is no hemorrhage or mass effect. A chroni c lacunar infarct centered in the right internal capsule. There is no restricted diffusion to suggest acute ischemia. Flores-white matter differentiation is preserved. No extra-axial fluid collection is s een. The cerebellar tonsils are normal in configuration. Ventricles, sulci, and cisterns: Prominent secondary to involutional change. Pituitary and sella: Unremarkable. Intracranial vasculature: Normal flow voids are maintained at the skull base. Orbits: The bony orbits are grossly intact. Orbital contents are normal in appearance. Sinuses and mastoids: There is moderate mucosal thickening in the right maxillary antrum. Trace mucos al thickening is noted in the ethmoid sinuses. The remaining paranasal sinuses and the metatarsals ar e clear. Calvarium: Unremarkable. Cervical cord: Partially visualized cervical spinal cord is normal in morphology and signal intensity . IMPRESSION: No acute intracranial abnormality. ACT 112: Negative or not required by law. Electronically signed by: Yasmany Daily M.D. 03/16/2023 2:49 PM
[2023-03-16 16:30] LABS: Appearance Urine Turbid (Clear); Bacteria Urine Automated Negative (Negative); Bilirubin Urine Negative (Negative); Blood Urine Negative (Negative); Cast Urine Automated 0 /lpf (0-5); Color Urine Yellow; Epithelial Cell Urine Auto 0-5 /lpf (0-5); Glucose Urine UA 1+ (Negative); Ketones Urine Negative (Negative); Leukocyte Esterase Urine Negative (Negative); Nitrite Urine Negative (Negative); Protein Urine Negative (Negative); RBC Urine Automated 0-4 /hpf (0-4); Specific Gravity Urine 1.036 (1.000-1.030); Urobilinogen Urine Negative (Negative); pH Urine 7.5 (4.5-7.5)
[2023-03-16] MEDS: AMIODARONE / D5W 360 MG/200 ML BAG IV SCH (18:00)
[2023-03-16] MEDS ORDERED: ASPIRIN 81 MG ECTAB PO SCH (21:00)
[2023-03-16] MEDS: LOSARTAN POTASSIUM 50 MG TAB PO SCH (21:37)
[2023-03-16] MEDS: FINASTERIDE 5 MG TAB PO SCH (21:37)
[2023-03-16] MEDS: METOPROLOL SUCC 25MG EXT REL TAB PO SCH (21:38)
[2023-03-16] MEDS: LOVASTATIN 20 MG TAB PO SCH (21:40)
[2023-03-17] MEDS ORDERED: LIDOCAINE 1% LOCAL 20 ML VIAL ONE (07:04)
[2023-03-17] MEDS ORDERED: VANCOMYCIN HCL 1000MG/20ML VIAL ONE (07:04)
[2023-03-17] MEDS ORDERED: WATER, STERILE FOR INJ 10 ML VIAL ONE (07:04)
[2023-03-17] MEDS ORDERED: BUPIVACAINE 0.25% PF 30 ML VIAL ONE (07:05)
[2023-03-17 07:39] LABS: Estimated Average Glucose 126 mg/dl
[2023-03-17 07:50] LABS: Basophils # (auto) 0.05 K/uL (0.00-0.20); Basophils % (auto) 0.7 %; Eosinophils # (auto) 0.12 K/uL (0.00-0.50); Eosinophils % (auto) 1.8 %; Hematocrit (blood only) 39.3 % (42.0-52.0); Hemoglobin 13.6 g/dl (14.0-18.0); Immature Granulocytes # (auto) 0.02 K/uL (0.01-0.20); Immature Granulocytes % (auto) 0.3 %; Lymphocytes # (auto) 1.13 K/uL (1.20-3.40); Lymphocytes % (auto) 16.8 %; Mean Corpuscular Hemoglobin 30.8 pg (25.0-34.0); Mean Corpuscular Hgb Conc 34.6 g/dL (32.0-36.0); Mean Corpuscular Volume 89.1 fL (80.0-100.0); Mean Platelet Volume 10.5 fL (9.4-12.4); Monocytes # (auto) 0.38 K/uL (0.11-0.59); Monocytes % (auto) 5.7 %; Neutrophils # (auto) 5.01 K/uL (1.40-6.50); Neutrophils % (auto) 74.7 %; Platelet Count 175 K/uL (130-400); RDW Coefficient of Variation 11.9 % (11.5-14.5); Red Blood Count 4.41 M/uL (4.70-6.10); White Blood Count 6.71 K/ul (4.8-10.8)
[2023-03-17 07:59] LABS: BUN Creatinine Ratio 18.3 (10-20); Calcium 9.4 mg/dl (8.6-10.3); Chol HDL Ratio 3.1 (0-5); Creatinine Clr Calc Pharmacy 58.1 ml/min; Est GFR (African American) 77.6 ml/min
[2023-03-17 08:11] LABS: Prothrombin Time 11.4 Seconds (9.0-12.0)
[2023-03-17] MEDS: MEMANTINE HCL 10 MG TAB PO SCH (08:11)
--- NOTE | 2023-03-17 08:48 | Pre Anesthesia Assessment ---
Date of Service March 17, 2023 Pre Sedation Assessment Vital Signs Temp Pulse Pulse Resp BP BP Pulse Ox 03/17/23 08:41 61 18 187/102 H 100 03/17/23 07:57 36.3 C L 52 L 18 168/84 H 95 03/17/23 07:04 50 L 03/17/23 03:22 36.5 C 49 L 20 134/72 98 03/16/23 22:45 36.5 C 58 L 18 145/67 H 100 03/16/23 21:55 66 03/16/23 19:35 36.4 C L 67 18 147/88 H 100 03/16/23 15:51 68 03/16/23 15:07 36.8 C 63 18 164/79 H 85 L 03/16/23 13:30 60 17 145/99 H 99 03/16/23 13:23 67 03/16/23 13:00 42 L 18 138/85 99 03/16/23 12:30 72 15 172/122 H 99 03/16/23 12:00 70 19 162/108 H 98 03/16/23 11:30 76 21 169/95 H 99 03/16/23 11:00 64 16 146/81 H 100 03/16/23 10:30 56 L 22 136/87 99 03/16/23 10:14 54 L 15 138/71 100 03/16/23 10:00 149/85 H 03/16/23 10:00 47 L 17 97 03/16/23 09:50 54 L 17 98 03/16/23 09:40 62 20 98 03/16/23 09:30 56 L 22 100 03/16/23 09:30 149/81 H 03/16/23 09:20 56 L 20 100 03/16/23 09:10 82 19 94 03/16/23 09:06 80 03/16/23 09:05 70 21 93 03/16/23 09:00 36.5 C 14 93 03/16/23 09:00 03/16/23 09:00 36.5 C 70 14 136/83 93 O2 Del Method 03/17/23 08:41 Room Air 03/17/23 07:57 Room Air 03/17/23 07:04 03/17/23 03:22 Room Air 03/16/23 22:45 Room Air 03/16/23 21:55 03/16/23 19:35 Room Air 03/16/23 15:51 03/16/23 15:07 Room Air 03/16/23 13:30 03/16/23 13:23 03/16/23 13:00 03/16/23 12:30 03/16/23 12:00 03/16/23 11:30 03/16/23 11:00 03/16/23 10:30 03/16/23 10:14 03/16/23 10:00 03/16/23 10:00 03/16/23 09:50 03/16/23 09:40 03/16/23 09:30 03/16/23 09:30 03/16/23 09:20 03/16/23 09:10 03/16/23 09:06 03/16/23 09:05 03/16/23 09:00 Room Air 03/16/23 09:00 Room Air 03/16/23 09:00 Room Air Cardiovascular + regular rate and + irregularly irregular Respiratory + respiratory effort normal Pre-Sedation Airway Assessment Smoking Status: Never smoker Hx Sleep Apnea: Yes Hx Difficult Intubation: No Short, Thick Neck: No Thyromental Distance: > or= 3.5 Finger Breadths Oral Cavity: + WNL Mallampati Class: I ASA: ASA3E NPO Status Date of Last Intake of Fluids: 03/16/23 Time of Last Intake of Fluids: 23:00 Date of Last Intake of Solid Food: 03/09/23 Time of Last Intake of Solid Foods: 17:00 Procedure Planning Contraindications for Sedation: none Current Medications Reviewed: Yes Notes The planned sedation has been discussed with the patient. Informed Consent was obtained. I have identified the patient, determined the appropriateness of sedation and have assessed the patient immediately prior to the procedure. All medicine(s) and interventions are by my order.
[2023-03-17] MEDS ORDERED: MIDAZOLAM HCL 1 MG/ML 2ML VIAL ONE (08:53)
[2023-03-17] MEDS ORDERED: NITROGLYCERIN/D5W 100MCG/ML 20ML SYR ONE (08:54)
[2023-03-17] MEDS ORDERED: HEPARIN (PORCINE) 1000 UNIT/ML 10 ML (CATH LAB USE ONLY) ONE (08:54)
[2023-03-17] MEDS ORDERED: niCARdipine HCL INJ 2.5 MG/ML 10 ML AMP ONE (08:54)
[2023-03-17] MEDS ORDERED: fentaNYL citrate PF 100 MCG/2 ML VIAL ONE (08:54)
--- NOTE | 2023-03-17 09:28 | Cardiac Catheterization ---
[facility] Data: Bungy Jump Master Cardiac Status Clinical evaluation leading to the procedure CAD Presenation: Unstable angina Diagnostic Physicians Name: Ravi Dick MD Closure Device Recommendations: CABG Cardiac Cath Procedure Full Procedure Date March 17, 2023 Pre-Procedure Diagnosis Pre-Procedure Diagnosis: Cardiothoracic Symptom AUC Score AUC Score: 7 Post-Procedure Diagnosis Post-Procedure Diagnosis: Severe CAD Procedure(s) Performed Procedure(s) Performed: Coronary Angiography and Left Heart Cath Pricer Ravi Dick MD Certified Medical Assistant(s) none Estimated Blood Loss Estimated Blood Loss: 7cc Medication(s) Medication(s): Fentanyl, Heparin, Lidocaine 1%, Nicardipine, Nitroglycerin and Versed Summary of Findings Procedure performed: Left heart catheterization, selective coronary angiography Staff threshing department supervisor: Ravi Dick MD Indication: The patient is a 72-year-old gentleman who presents to the hospital yesterday with out of hospital cardiac arrest. He had documented polymorphic ventricular tachycardia. Based on his presentation and history he was advised to undergo coronary angiography. Procedure in detail: The patient was informed of the risks benefits and alternatives to the intended procedure, he understood such and wished to proceed. He was taken to the cardiac catheterization suite in a fasting state. Conscious sedation was administered per protocol and the patient was monitored electrocardiographically throughout today's procedure. The right wrist area was prepped and draped in usual sterile fashion. This area was anesthetized using subcutaneous administration of a lidocaine solution. The right radial artery was then accessed using Seldinger technique, and a arterial sheath was placed at this site over a guidewire. The sheath was used to facilitate passage of the cardiac catheter for coronary angiography and left heart catheterization. Coronary angiogram was then obtained in multiple orthogonal views prior to removal of the catheter. At the conclusion of the procedure the sheath was removed and he mostasis was achieved at the access site using manual pressure. The patient tolerated procedure well, there were no immediate complications. Equipment used: 5 Croatian JL4, 5 Croatian JR4 Findings: Coronary angiography Left main: The left main was narrowed throughout its entire course with an estimated stenosis of 50-60%. He did bifurcate into the left anterior descending and left circumflex arteries Left anterior descending: Left anterior descending was large transapical vessel. He had a an ectatic segment at its origin and he 70% stenosis in its proximal portion. Bifurcated into a large 1st diagonal branch with a 70% stenosis. The ongoing vessel had another 50-60% stenosis in its midportion. Left circumflex: Was a nondominant vessel. He had a mildly ectatic portion at its origin followed a 70% stenosis just prior to the takeoff of the 1st obtuse marginal branch. It provided a large collateral to the right coronary artery Right coronary: The right coronary was a dominant vessel. It had 99% ostial stenosis. There was a 70% stenosis of the proximal PDA. Impression: Severe multivessel coronary disease involving the ostial right coronary, left main, proximal LAD, ostial diagonal and mid circumflex. Right dominant coronary system No evidence of aortic stenosis Normal (low) left ventricular filling pressure Hemodynamics Rest Ao:: 122/64 mm of mercury Final Ao: 114/60 mm of mercury LV: 112/0 mm of mercury Left ventricular end-diastolic pressure 4 mm of mercury Recommendations Recommendations: CABG Specimens Specimens: None Radiation Exposure (mGy) 78 Contrast (mls) 20 Procedural Complication(s) None Disposition PCU I attest to the content of the Intraoperative Record and any orders documented therein. Any exceptions are noted below. [facility] Card Cath Procedure Codes Cardiac Catheterization Procedure 1: Cardiovascular Cath Procedures: 32729 Coronaries and LHC (+/-LV) Moderate Sedation Procedure 1: Sedation/Anesthesia: 00517 Mod Sedation by the same physician;Init15 Min Child Age 5 & Up Procedure 2: Sedation/Anesthesia: 57650 Mod Sedation by the same physician; Ea [id number] Minutes PG Care Time/CCT Total # of Minutes Spent Total Time Spent with Patient: Total time spent is greater than 50% in coordination of care (as documented) at patient's floor/unit and/or counseling patient:
--- NOTE | 2023-03-17 09:29 | Post Anesthesia Assessment ---
Date of Service March 17, 2023 Post Sedation Assessment Vital Signs Temp Pulse Pulse Resp BP BP Pulse Ox 03/17/23 08:41 61 18 187/102 H 100 03/17/23 07:57 36.3 C L 52 L 18 168/84 H 95 03/17/23 07:04 50 L 03/17/23 03:22 36.5 C 49 L 20 134/72 98 03/16/23 22:45 36.5 C 58 L 18 145/67 H 100 03/16/23 21:55 66 03/16/23 19:35 36.4 C L 67 18 147/88 H 100 03/16/23 15:51 68 03/16/23 15:07 36.8 C 63 18 164/79 H 85 L 03/16/23 13:30 60 17 145/99 H 99 03/16/23 13:23 67 03/16/23 13:00 42 L 18 138/85 99 03/16/23 12:30 72 15 172/122 H 99 03/16/23 12:00 70 19 162/108 H 98 03/16/23 11:30 76 21 169/95 H 99 03/16/23 11:00 64 16 146/81 H 100 03/16/23 10:30 56 L 22 136/87 99 03/16/23 10:14 54 L 15 138/71 100 03/16/23 10:00 149/85 H 03/16/23 10:00 47 L 17 97 03/16/23 09:50 54 L 17 98 03/16/23 09:40 62 20 98 03/16/23 09:30 56 L 22 100 03/16/23 09:30 149/81 H O2 Del Method 03/17/23 08:41 Room Air 03/17/23 07:57 Room Air 03/17/23 07:04 03/17/23 03:22 Room Air 03/16/23 22:45 Room Air 03/16/23 21:55 03/16/23 19:35 Room Air 03/16/23 15:51 03/16/23 15:07 Room Air 03/16/23 13:30 03/16/23 13:23 03/16/23 13:00 03/16/23 12:30 03/16/23 12:00 03/16/23 11:30 03/16/23 11:00 03/16/23 10:30 03/16/23 10:14 03/16/23 10:00 03/16/23 10:00 03/16/23 09:50 03/16/23 09:40 03/16/23 09:30 03/16/23 09:30 Recovery Score Activity: Moves 4 extremities Respiration: Deep Breath/Cough Circulation: +/-20% PreAnes Value Consciousness: Fully Awake Oxygen Saturation: > 92% On Room Air Discharge Sedation Level of Care: Fast Track Phase II Post Sedation Plan On clinical assessment, the patient appears to have tolerated the sedation without complications. Patient is recovering as anticipated. Patient will continue to be monitored by nursing and may be discharged when sedation discharge criteria are met per below protocol. Upon Completions of procedure up to 15 minutes continue every 5 minute vital si gns and the P.A.R. score; then discharge to a Phase I or Fast Track to Phase II per the following guidelines: * Discharge Patient to appropriate Phase II area if PAR is 8 or greater or return to pre- procedure baseline. The post - procedure orders will be as directed. * If PAR score is less than 8 or not return to pre-procedure baseline then patient will follow Phase I monitoring till PAR is reached for Phase II. The Phase I may be done in procedure room or may call to secure a Phase I area. * If naloxone or flumazenil are used for reversal, hold in Phase I for continued monitoring from when last reversal dose was given for a minimum of 60 minutes or longer pending the nurse and/or physician discretion of patient condition before discharge to Phase II. Please call the Sedation Physician to re-evaluate and complete post-note for discharge to Phase II area. Do NOT discharge from procedure sedation or Phase 1 until post- sedation evaluation note is complete by procedure /sedation MD Sedation Discharge Instructions to be given to the patient at discharge to home.
[2023-03-17] MEDS: AMIODARONE / D5W 360 MG/200 ML BAG IV SCH (11:28)
--- NOTE | 2023-03-17 14:18 | Hospitalist Progress Note ---
Date of Service March 17, 2023 Assessment & Plan (1) Syncope and collapse: Plan: Severe coronary artery disease found on left heart catheterization done today, March 17. Cardiology is making arrangements for transfer to [facility] for coronary artery bypass grafting surgery. The patient is aware. He is currently pain-free with stable vital signs. No recurrent syncope while hospitalized. He is now on amiodarone. (2) Ventricular tachycardia: Plan: 3 minute run on loop recorder during syncopal episode on the morning of admission. Cardiology consultation and recommendations appreciated. He is now on amiodarone. Telemetry (3) Vertebral artery stenosis: Plan: Noted on CTA of the head/neck today. Medical management (4) Essential hypertension: Plan: Stable. Continue Losartan (5) Mixed Alzheimer's and vascular dementia: Plan: Supportive care. Continue Namenda. (6) BPH with obstruction/lower urinary tract symptoms: Plan: Stable. Continue Avodart (7) Paroxysmal atrial fibrillation: Plan: Stable. Continue metoprolol per cardiology . Telemetry Plan Severe coronary artery disease detected on left heart catheterization done today, March 17. Cardiology is making arrangements for transfer to [facility] for coronary artery bypass grafting. Admission and Anticipated Discharge Date Admission Date: March 16, 2023 Subjective The patient was seen after his heart catheterization. He is alert and oriented without complaint. Dr. Dick stated he was found to have severe coronary artery disease and he will be transferred to [facility] for coronary artery bypass grafting. I do not have the details of the left heart catheterization available to me at the time of this dictation. The patient is aware that he will be transferred to [facility] and will need open heart surgery. Review of Systems 2 Review of Systems: Constitutional-no fever or chills ENT-no blurred vision, no double vision, no epistaxis, no sore throat Respiratory-no cough, no wheezing, no shortness of breath Cardiac-no palpitations, no chest pain, no syncope GI-no nausea, vomiting, diarrhea, melena, hematochezia -no urinary retention, no urinary incontinence, no dysuria, no hematuria Musculoskeletal-no joint pain, no muscle tenderness Skin-no bruising, no rashes, no pruritus Neuro-no isolated weakness, no paresthesia, no weakness Psych-no depression, no anxiety Physical Exam 2 Physical Exam: General-alert and oriented x3, no fevers, no chills HEENT-head atraumatic and normocephalic, pupils equal and reactive to light, extraocular muscles intact Neck-no lymphadenopathy or thyromegaly, trachea midline Chest-clear to auscultation percussion. No rales wheezing or rhonchi Cardiac-regular rate and rhythm, normal S1 and S2 Abdomen-normal bowel sounds, nontender, no hepatosplenomegaly Extremities-no cyanosis, clubbing, or edema Neuro-cranial nerves II through XII intact, motor and sensory function within normal limits, strength symmetrical, no focal deficits Psych-normal affect, normal mood Results & Data Results & Data Vital Signs (Past 12 Hours) Vital Signs Temp Pulse Pulse Pulse Resp BP Pulse Ox 03/17/23 12:44 62 18 148/76 H 96 03/17/23 11:44 57 L 18 135/81 97 03/17/23 10:44 58 L 18 146/72 H 95 03/17/23 10:14 36.4 C L 54 L 18 96 03/17/23 10:13 36.4 C L 56 L 20 153/73 H 97 03/17/23 09:45 66 16 120/66 97 03/17/23 09:30 64 16 128/78 96 03/17/23 08:41 61 18 187/102 H 100 03/17/23 07:57 36.3 C L 52 L 18 168/84 H 95 03/17/23 07:04 50 L 03/17/23 03:22 36.5 C 49 L 20 134/72 98 O2 Del Method 03/17/23 12:44 Room Air 03/17/23 11:44 Room Air 03/17/23 10:44 Room Air 03/17/23 10:14 Room Air 03/17/23 10:13 Room Air 03/17/23 09:45 Room Air 03/17/23 09:30 Room Air 03/17/23 08:41 Room Air 03/17/23 07:57 Room Air 03/17/23 07:04 03/17/23 03:22 Room Air Laboratory Results 03/17/23 07:22 03/17/23 07:22 PG Care Time/CCT Total # of Minutes Spent Total Time Spent with Patient: Total time spent is greater than 50% in coordination of care (as documented) at patient's floor/unit and/or counseling patient: Coding Level of Care Code 52867 SUB INP/OBS CARE 350MIN Diagnoses Syncope and collapse R55 Ventricular tachycardia I47.20 Vertebral artery stenosis I65.09 Essential hypertension I10 Mixed Alzheimer's and vascular dementia G30.9; F01.50; F02.80 BPH with obstruction/lower urinary tract symptoms N40.1; N13.8 Paroxysmal atrial fibrillation I48.0
[2023-03-17] MEDS ORDERED: STROKE PATIENT DISCHARGE STA (15:25)
--- NOTE | 2023-03-17 15:25 | Discharge Summary ---
Date of Service March 17, 2023 Admission HPI Per Admitting Provider Tunde is a 72 year old male with a PMH significant for afib on Eliquis, mixed Alzheimer's and vascular dementia with behavior disturbances, recurrent falls S/P patient activated loop recorder, HTN, and BPH who presented to the [facility] ED via EMS on 03/16 as a stroke alert. He remained stable while in the ED. Per the ED staff, the patient was out for a walk this am. A neighbor saw him laying on the ground next to the sidewalk and called police. He was reportedly having agonal breathing, garbled speech, and confusion when police arrived. On arrival to the ED the patient was alert and back to his neurologic baseline. Labs were significant for a glucose of 204. Ct of the head wo con was read as negative for acute findings. CTA of the head was read as 1. No large vessel occlusion. No intracranial aneurysm. Exam mildly compromised by motion artifact. 2. Moderate to severe stenoses within the bilateral intracranial vertebral arteries. Moderate plaque within the bilateral cavernous carotids with suspected moderate stenosis.. CTA of the neck was read as 1. Moderate atherosclerotic plaque within the proximal bilateral internal carotid arteries without significant stenosis. 2. Mild stenosis at the origin of the right vertebral artery. Moderate to severe stenoses within the intracranial portions of the bilateral vertebral arteries. The ED interrogated the patient's loop recorder which showed the patient to have sustained a 3 minute running of V-Tach during his syncopal episode. At the time of the exam the patient was sitting in bed in no acute distress with his sitting bedside. He states that he went for his normal morning walk around the neighborhood. He was feeling well when he woke and denies having any symptoms such as chest pain, heart palpitations, SOB, lightheadedness, or dizziness. He states that he just suddenly passed out. The ED confirms that EMS reported left-sided weakness on arrival but this has resolved. He currently is without complaints of pain. He denies current headache, changes in vision, hearing, taste, and smell, chest pain, SOB, cough, abd pain, nausea, vomiting, diarrhea, dysuria, hematuria, melena, unilateral weakness, new paresthesias, and LE swelling. We discussed code status, he is a full code and would want his to make medical decisions for him if he could not make them himself. Please refer to Dr. Diaz's attestation for any changes to the treatment plan Principal Diagnosis Syncope. Ventricular tachycardia. Triple-vessel coronary artery disease. Vertebral artery stenosis. Discharge Exam General-alert and oriented x3, no fevers, no chills HEENT-head atraumatic and normocephalic, pupils equal and reactive to light, extraocular muscles intact Neck-no lymphadenopathy or thyromegaly, trachea midline Chest-clear to auscultation percussion. No rales wheezing or rhonchi Cardiac-regular rate and rhythm, normal S1 and S2 Abdomen-normal bowel sounds, nontender, no hepatosplenomegaly Extremities-no cyanosis, clubbing, or edema Neuro-cranial nerves II through XII intact, motor and sensory function within normal limits, strength symmetrical, no focal deficits Psych-normal affect, normal mood Discharge Data Allergies Allergy/AdvReac Type Severity Reaction Status Date / Time Penicillins Allergy Intermediate Gastrointestinal Verified 01/31/23 10:39 Upset Consultations 03/16/23 10:04 Consult Cardiology Stat ED Decision to Admit Stat Procedures Performed Operation Date: 03/17/23 09:00 Actual Procedures s Cineradiography w/Routine Exam - Ravi Dick MD p Cath, Left with Cors and Vent - Ravi Dick MD Ordered Studies 03/16/23 08:47 CT angio head w con Stat CT angio neck with con Stat CT head/brain wo con Stat 03/16/23 11:04 MRI Brain [MR brain wo con] Routine 03/17/23 07:01 CL Cath Imgs for PACS use only Routine 03/17/23 07:15 EP Lab Images for PACS ONCE Hospital Course (1) Syncope and collapse: Severe coronary artery disease found on left heart catheterization done today, March 17. Cardiology is making arrangements for transfer to [facility] for coronary artery bypass grafting surgery. The patient is aware. He is currently pain-free with stable vital signs. No recurrent syncope while hospitalized. He is now on amiodarone. (2) Ventricular tachycardia: 3 minute run on loop recorder during syncopal episode on the morning of admission. Cardiology consultation and recommendations appreciated. He is now on amiodarone. Telemetry (3) Vertebral artery stenosis: Noted on CTA of the head/neck today. Medical management (4) Essential hypertension: Stable. Continue Losartan (5) Mixed Alzheimer's and vascular dementia: Supportive care. Continue Namenda. (6) BPH with obstruction/lower urinary tract symptoms: Stable. Continue Avodart (7) Paroxysmal atrial fibrillation: Stable. Continue metoprolol per cardiology . Telemetry Plan Severe coronary artery disease detected on left heart catheterization done today, March 17. Cardiology is making arrangements for transfer to [facility] for coronary artery bypass grafting. Total Time Total Time Spent Total Time Spent (In Minutes): 45 minutes Discharge Plan Discharge Items Patient Disposition: Transfer Acute Care Hospital Reason For Visit: SYNCOPE, V-TACH Discharge Diagnosis: Syncope, sustained ventricular tachycardia, triple-vessel coronary artery disease, vertebral artery stenosis Activity: As commented below Activity Comment: Bedrest Non-emergency contact: Primary Care Provider and Police Liaison Officer Call non-emergency contact if: you have any medication questions and your symptoms worsen Follow-up/Referrals: ProBandar MD [Primary Care Provider] - Diet: Regular and Heart Healthy Addtl Attending Provider Instructions: See your PCP and finance insurance manager here as soon as possible after discharge from [facility] Pending Studies at Discharge: No Stand-Alone Forms: My [facility] Skilled Items Patient informed of condition?: Yes DNR: No Discharge Level of Care: Other Communicable Disease: No Discharge Prognosis: Stable Lines: Peripheral IV Urinary Catheter: No Medications and DC Order Prescriptions: Continued Eliquis 5 mg tablet 5 mg PO BID Qty: 180 3RF lovastatin 40 mg tablet 40 mg PO PM Qty: 90 3RF cholecalciferol (vitamin D3) [Vitamin D3] 25 mcg (1,000 unit) capsule 25 mcg PO QPM [place] 81 mg capsule 81 mg PO 3XWK Rx Instructions: MWF evening diltiazem HCl [Tiadylt ER] 120 mg capsule,extended release 24 hr 120 mg PO QPM multivitamin [Daily Value] Tablet 1 tab PO QPM coenzyme Q10 [CoQ-10] 100 mg Capsule 100 mg PO QPM dutasteride [Avodart] 0.5 mg capsule 0.5 mg PO QPM resveratrol 1 cap capsule 1 cap PO QPM losartan [Cozaar] 50 mg tablet 50 mg PO QPM metoprolol succinate [Toprol XL] 25 mg tablet extended release 24 hr 25 mg PO QPM memantine [Namenda] 10 mg tablet 10 mg PO QAM Discharge Orders: Discharge Order (Routine); Ordered 03/17/23 Ordered By: Kumar Ramirez/Other Patient Handouts: Prediabetes, 5 Steps for Eating Healthier Admission Data Admit Date/Time: 03/16/23 10:22 Attending Provider: Kumar Jc Admit Provider: Chuck Diaz Primary Care Provider: Bandar Card Other Providers: Ravi Dick; Chuck Diaz Coding Level of Care Code 52465 INP/OBS DISCH >30 MIN Diagnoses Syncope and collapse R55 Ventricular tachycardia I47.20 Vertebral artery stenosis I65.09 Essential hypertension I10 Mixed Alzheimer's and vascular dementia G30.9; F01.50; F02.80 BPH with obstruction/lower urinary tract symptoms N40.1; N13.8 Paroxysmal atrial fibrillation I48.0
--- NOTE | 2023-03-17 15:36 | Discharge Summary ---
Date of Service March 17, 2023 Admission HPI Per Admitting Provider Tunde is a 72 year old male with a PMH significant for afib on Eliquis, mixed Alzheimer's and vascular dementia with behavior disturbances, recurrent falls S/P patient activated loop recorder, HTN, and BPH who presented to the [facility] ED via EMS on 03/16 as a stroke alert. He remained stable while in the ED. Per the ED staff, the patient was out for a walk this am. A neighbor saw him laying on the ground next to the sidewalk and called police. He was reportedly having agonal breathing, garbled speech, and confusion when police arrived. On arrival to the ED the patient was alert and back to his neurologic baseline. Labs were significant for a glucose of 204. Ct of the head wo con was read as negative for acute findings. CTA of the head was read as 1. No large vessel occlusion. No intracranial aneurysm. Exam mildly compromised by motion artifact. 2. Moderate to severe stenoses within the bilateral intracranial vertebral arteries. Moderate plaque within the bilateral cavernous carotids with suspected moderate stenosis.. CTA of the neck was read as 1. Moderate atherosclerotic plaque within the proximal bilateral internal carotid arteries without significant stenosis. 2. Mild stenosis at the origin of the right vertebral artery. Moderate to severe stenoses within the intracranial portions of the bilateral vertebral arteries. The ED interrogated the patient's loop recorder which showed the patient to have sustained a 3 minute running of V-Tach during his syncopal episode. At the time of the exam the patient was sitting in bed in no acute distress with his sitting bedside. He states that he went for his normal morning walk around the neighborhood. He was feeling well when he woke and denies having any symptoms such as chest pain, heart palpitations, SOB, lightheadedness, or dizziness. He states that he just suddenly passed out. The ED confirms that EMS reported left-sided weakness on arrival but this has resolved. He currently is without complaints of pain. He denies current headache, changes in vision, hearing, taste, and smell, chest pain, SOB, cough, abd pain, nausea, vomiting, diarrhea, dysuria, hematuria, melena, unilateral weakness, new paresthesias, and LE swelling. We discussed code status, he is a full code and would want his to make medical decisions for him if he could not make them himself. Principal Diagnosis A cardiac arrest Discharge Exam The patient is alert and oriented. He answered questions appropriately but was forgetful. HEENT: Pupils are equal and reactive to light and accommodation. Extraocular movements are intact. The sclerae are anicteric. Neuro: Cranial nerves intact Lungs: Clear to auscultation bilaterally. He has good air movement without use of accessory muscles. No rales wheezes or rhonchi. Cardiac: Heart demonstrates a regular rate and rhythm. Normal S1 and S2. No murmurs on examination. Pulses: The patient has palpable radial pulses bilaterally that are equal in intensity. Good perfusion of the right hand Extremities: There was no evidence of hypoperfusion. There is no cyanosis or clubbing. There is no edema. Skin: I did not appreciate any rashes on examination today. Discharge Data Allergies Allergy/AdvReac Type Severity Reaction Status Date / Time Penicillins Allergy Intermediate Gastrointestinal Verified 01/31/23 10:39 Upset Consultations 03/16/23 10:04 Consult Cardiology Stat ED Decision to Admit Stat Procedures Performed Operation Date: 03/17/23 09:00 Actual Procedures p Cineradiography w/Routine Exam - Ravi Dick MD Ordered Studies 03/16/23 08:47 CT angio head w con Stat CT angio neck with con Stat CT head/brain wo con Stat 03/16/23 11:04 MRI Brain [MR brain wo con] Routine 03/17/23 07:01 CL Cath Imgs for PACS use only Routine 03/17/23 07:15 EP Lab Images for PACS ONCE Hospital Course (1) Ventricular tachycardia: (2) Syncope and collapse: Plan 1. Ventricular tachycardia: The recording from his implanted device suggested an episode of polymorphic ventricular tachycardia. No resuscitation was performed with the patient was seen by a fever and had an uneventful recovery. Small abrasion to the nose. Her initial evaluation include coronary angiography which revealed severe coronary disease. The nature of his event was likely an element of ischemia which precipitated his ventricular arrhythmia. Based on his event in coronary anatomy he was advised to consider surgical revascularization. Currently being transferred to [facility] for evaluation. 2. Syncope: He does have a history of syncope remotely. He had a loop recorder implanted for diagnostic purposes. He does have occasional bradycardia during traditional sleeping hours, but no other arrhythmias have been identified until his current admission. 3. Atrial fibrillation: Permanent. Adequate rate control. Will continue metoprolol. Oral anticoagulation being held to facilitate operative intervention. Total Time Total Time Spent Total Time Spent (In Minutes): 30 Discharge Plan Discharge Items Patient Disposition: Transfer Acute Care Hospital Reason For Visit: SYNCOPE, V-TACH Discharge Diagnosis: Syncope, sustained ventricular tachycardia, triple-vessel coronary artery disease, vertebral artery stenosis Activity: As commented below Activity Comment: Bedrest Lifting: No more than 5 pounds Lifting Comment: No vigorous use of the right hand or wrist for 7 days Non-emergency contact: Primary Care Provider and Wire Welder Call non-emergency contact if: you have any medication questions and your symptoms worsen Follow-up/Referrals: ProBandar MD [Primary Care Provider] - Diet: Carb Consistent or DM2 and Heart Healthy Addtl Attending Provider Instructions: See your PCP and meat molder here as soon as possible after discharge from [facility] Pending Studies at Discharge: No Stand-Alone Forms: My [employer] Skilled Items Patient informed of condition?: Yes DNR: No Discharge Level of Care: Other Communicable Disease: No Discharge Prognosis: Stable Lines: Peripheral IV Urinary Catheter: No Medications and DC Order Prescriptions: Continued Eliquis 5 mg tablet 5 mg PO BID Qty: 180 3RF lovastatin 40 mg tablet 40 mg PO PM Qty: 90 3RF cholecalciferol (vitamin D3) [Vitamin D3] 25 mcg (1,000 unit) capsule 25 mcg PO QPM Vazalore 81 mg capsule 81 mg PO 3XWK Rx Instructions: MWF evening diltiazem HCl [Tiadylt ER] 120 mg capsule,extended release 24 hr 120 mg PO QPM multivitamin [Daily Value] Tablet 1 tab PO QPM coenzyme Q10 [CoQ-10] 100 mg Capsule 100 mg PO QPM dutasteride [Avodart] 0.5 mg capsule 0.5 mg PO QPM resveratrol 1 cap capsule 1 cap PO QPM losartan [Cozaar] 50 mg tablet 50 mg PO QPM metoprolol succinate [Toprol XL] 25 mg tablet extended release 24 hr 25 mg PO QPM memantine [Namenda] 10 mg tablet 10 mg PO QAM Discharge Orders: Discharge Order (Routine); Ordered 03/17/23 Ordered By: Kumar Jc Discharge Order- CHF (Routine); Ordered 03/17/23 Ordered By: Ravi Ramirez/Other Patient Handouts: Prediabetes, 5 Steps for Eating Healthier Admission Data Admit Date/Time: 03/16/23 10:22 Attending Provider: Kumar Jc Admit Provider: Chuck Diaz Primary Care Provider: Bandar Card Other Providers: Ravi Dick; Chuck Diaz Coding Level of Care Code INP/OBS EV SAME DAY LV 1,45MIN Diagnoses Ventricular tachycardia I47.20 Syncope and collapse R55
[2023-03-17] MEDS ORDERED: amLODIPine BESYLATE 5 MG TAB PO ONE ×2 (15:38→15:40)
[2023-03-17] MEDS ORDERED: Heparin IV Adult Wt-Based Low-Dose *NO* INITIAL Bolus Protocol IV SCH (15:40)
[2023-03-17] MEDS ORDERED: HEPARIN SODIUM/DEXTROSE 25,000 UNITS/500 ML BAG IV SCH (16:00)
[2023-03-17 19:17] VITALS: RESP 16
[2023-03-17] MEDS: FINASTERIDE 5 MG TAB PO SCH (19:54)
[2023-03-17] MEDS: LOSARTAN POTASSIUM 50 MG TAB PO SCH (19:54)
[2023-03-17] MEDS: METOPROLOL SUCC 25MG EXT REL TAB PO SCH (19:55)
[2023-03-17] MEDS: LOVASTATIN 20 MG TAB PO SCH (19:55)
[2023-03-18 00:17] LABS: Partial Thromboplastin Ratio 1.4; Partial Thromboplastin Time 39.3 Seconds (21.0-31.0)
[2023-03-18 07:23] LABS: Basophils # (auto) 0.05 K/uL (0.00-0.20); Basophils % (auto) 0.6 %; Eosinophils # (auto) 0.19 K/uL (0.00-0.50); Eosinophils % (auto) 2.4 %; Hematocrit (blood only) 42.5 % (42.0-52.0); Hemoglobin 14.5 g/dl (14.0-18.0); Immature Granulocytes # (auto) 0.03 K/uL (0.01-0.20); Immature Granulocytes % (auto) 0.4 %; Lymphocytes # (auto) 0.96 K/uL (1.20-3.40); Mean Corpuscular Hemoglobin 30.9 pg (25.0-34.0); Mean Corpuscular Hgb Conc 34.1 g/dL (32.0-36.0); Mean Corpuscular Volume 90.6 fL (80.0-100.0); Mean Platelet Volume 11.1 fL (9.4-12.4); Monocytes # (auto) 0.43 K/uL (0.11-0.59); Monocytes % (auto) 5.4 %; Neutrophils # (auto) 6.32 K/uL (1.40-6.50); Neutrophils % (auto) 79.2 %; Platelet Count 144 K/uL (130-400); RDW Coefficient of Variation 11.7 % (11.5-14.5); RDW Standard Deviation 38.6 fL (36.4-46.3); Red Blood Count 4.69 M/uL (4.70-6.10); White Blood Count 7.98 K/ul (4.8-10.8)
[2023-03-18 07:26] LABS: BUN Creatinine Ratio 18.7 (10-20); Calcium 9.4 mg/dl (8.6-10.3); Creatinine Clr Calc Pharmacy 59.2 ml/min; Est GFR (African American) 79.4 ml/min; Est GFR (Non-African American) 68.5 ml/min; Magnesium 1.8 mg/dl (1.7-2.4); Potassium 3.8 mmol/L (3.5-5.1)
[2023-03-18] MEDS: MEMANTINE HCL 10 MG TAB PO SCH (07:27)
[2023-03-18 07:44] LABS: Partial Thromboplastin Ratio 1.3; Partial Thromboplastin Time 37.3 Seconds (21.0-31.0); Prothrombin Time 11.4 Seconds (9.0-12.0)
[2023-03-18 08:15] VITALS: BP 135/74; PULSE 80; TEMP 98.2; O2SAT 97
== END 2023-03-18 09:41 | disposition short-term general hospital (02) | DRG 287 ==
LOC: ED 08:48 → SUATTDRO 10:22 → EDINP 10:22 → 2S 12:44
DX: F01.518 Vascular dementia, unspecified severity, with other behavioral disturbance; N40.1 Benign prostatic hyperplasia with lower urinary tract symptoms; Z95.818 Presence of other cardiac implants and grafts; F02.818 Dementia in other diseases classified elsewhere, unspecified severity, with other behavioral disturbance; Z88.0 Allergy status to penicillin; I25.110 Atherosclerotic heart disease of native coronary artery with unstable angina pectoris; I49.01 Ventricular fibrillation; Z79.82 Long term (current) use of aspirin; G30.9 Alzheimer's disease, unspecified; I46.2 Cardiac arrest due to underlying cardiac condition; Z86.73 Personal history of transient ischemic attack (TIA), and cerebral infarction without residual deficits; Z79.01 Long term (current) use of anticoagulants; I47.20 Ventricular tachycardia, unspecified; Z79.899 Other long term (current) drug therapy; N13.8 Other obstructive and reflux uropathy; I48.21 Permanent atrial fibrillation; R55 Syncope and collapse; I10 Essential (primary) hypertension; I65.03 Occlusion and stenosis of bilateral vertebral arteries